=== PATIENT | male | born 1930 | race Caucasian/White ===

== ENCOUNTER 2017-06-25 10:56 | Day surgery (SDC) | payer MEDICARE, BC ==
[~2017-06-25] VITALS: Ht 167.6 cm; Wt 61.5 kg
[2017-06-25] VITALS (8 sets, daily range): BP systolic 125–169; BP diastolic 67–94; PULSE 55–84; RESP 16–18; TEMP 97.3–98; O2SAT 93–98
[2017-06-25] MEDS ORDERED: CHLORHEXIDINE GLUCONATE 2 % 1 PACK (2 CLOTHS) TOPICAL PRN (11:30)
[2017-06-25] MEDS ORDERED: INSULIN HUMAN REGULAR 1,000 UNITS/10 ML VIAL SQ PRN (11:30)
[2017-06-25] MEDS ORDERED: METOPROLOL TARTRATE 25 MG TAB PO PRN (11:30)
[2017-06-25] MEDS ORDERED: VANCOMYCIN 1000 MG/NS 250 ML IV SCH ×2 (11:30)
[2017-06-25] MEDS ORDERED: LACTATED RINGER'S 1000 ML IV PRN (11:30)
[2017-06-25] MEDS ORDERED: POVIDONE IODINE 5% (ANTISEPSIS KIT) 4 APPLICATIONS EACH NARE SCH (11:30)
[2017-06-25] MEDS ORDERED: SODIUM CHLORID 0.9% 500 ML IV PRN (11:30)
[2017-06-25] MEDS ORDERED: POVIDONE IODINE 5% (ANTISEPSIS KIT) 4 APPLICATIONS EACH NARE PRN (11:30)
[2017-06-25] MEDS ORDERED: CHLORHEXIDINE GLUCONATE 2 % 1 PACK (2 CLOTHS) TOPICAL SCH (11:30)
[2017-06-25] MEDS ORDERED: ceFAZolin 2 GM PREMIX 50 ML IV SCH (11:30)
[2017-06-25] MEDS ORDERED: ALLO100T PO (11:39)
[2017-06-25] MEDS ORDERED: TYLE325T PO (11:39)
[2017-06-25] MEDS ORDERED: FISHCAP4 PO (11:39)
[2017-06-25] MEDS ORDERED: LISI-515 PO (11:39)
[2017-06-25] MEDS ORDERED: PRAV10TA PO (11:39)
[2017-06-25] MEDS ORDERED: GLUC500T4 PO (11:39)
[2017-06-25] MEDS ORDERED: TARTCAP PO (11:39)
[2017-06-25] MEDS ORDERED: MUPIROCIN 2% OINT 1 APPLIC/GM SYR NASAL SCH (12:00)
[2017-06-25] MEDS ORDERED: NS 1000 ML IV SCH (12:00)
[2017-06-25 12:13] LABS: AUTOMATED NEUTROPHIL # 6.9 TH/MM3 (1.8-7.7); BASOPHIL % 0.3 % (0.0-2.0); EOSINOPHIL % 0.4 % (0.0-4.0); HEMATOCRIT 47.4 % (39.0-51.0); HEMO FLAGS DIFF FINAL; LYMPH % 14.2 % (9.0-44.0); LYMPHOCYTE # 1.2 TH/MM3 (1.0-4.8); MEAN CELL VOLUME 92.7 FL (80.0-100.0); MEAN CORPUSCULAR HEMOGLOBIN 31.5 PG (27.0-34.0); NEUT % 80.1 % (16.0-70.0); PLATELET COUNT 127 TH/MM3 (150-450); RED BLOOD COUNT 5.11 MIL/MM3 (4.50-5.90); RED CELL DISTRIBUTION WIDTH 13.9 % (11.6-17.2); WHITE BLOOD COUNT 8.6 TH/MM3 (4.0-11.0)
[2017-06-25 12:22] LABS: APTT (PATIENT) 28.2 SEC (24.3-30.1)
[2017-06-25 12:25] LABS: BICARBONATE 28.2 MEQ/L (21.0-32.0)
[2017-06-25] MEDS ORDERED: LIDOCAINE HCL 2% 50 ML VIAL ONE ×2 (12:32→12:49)
[2017-06-25] MEDS ORDERED: VANCOMYCIN HCL 1000 MG VIAL ONE (12:49)
[2017-06-25] MEDS ORDERED: ceFAZolin INJ 1,000 MG VIAL ONE (12:49)
[2017-06-25] MEDS ORDERED: VANCOMYCIN 500 MG VIAL ONE (12:49)
[2017-06-25] MEDS ORDERED: MAGNESIUM HYDROXIDE SUSP 30 ML CUP PO PRN (14:45)
[2017-06-25] MEDS ORDERED: ONDANSETRON HCL 4 MG/2 ML VIAL IV PUSH PRN (14:45)
[2017-06-25] MEDS ORDERED: ACETAMINOPHEN/CODEINE 300 MG/30 MG TAB PO PRN (14:45)
[2017-06-25] MEDS ORDERED: ZOLPIDEM TARTRATE 5 MG TAB PO PRN (14:45)
--- NOTE | 2017-06-25 14:51 | CATHPROC ---
[employer] HIS Report Study Information Admission Scheduled Start Study Start Jun 25 2017 10:56AM 06/25/2017 Jun 25 2017 12:38PM [place] [facility] Cardiac Pacer/ICD Facility Department [facility] - Associate Agent Insurance Sales Physician and Clinical Staff Initial Luci Pearce Customer Supply Chain Analyst Shravan Zhu,RT(R) Other Anesthesia, VACUUM FORM OPERATOR Recorder Brain Bliss,RN Scrub Rajani Valentin,JANN Procedures Performed Procedure Lead Insertion Equipment Time Movie Writer Description Size Mfg Part Number Used/Scraped [id number] 13:45 MEDLINE INDUSTRIES SUTURE, STRIP PLUS 1/2" * Used *[id number] 13:45 MEDLINE PACER ADHESIVE, MASTISOL 2/3CC 2/3CC 0523-48 Used 13:45 MEDLINE PACER HARDING, LIMB * 2530 *[id number] Used [id number] 13:45 MEDLINE PACER PACK, PACER CUSTOM * Used *[id number] 13:45 MEDLINE PACER PEN, SKIN DUAL W/ RULER * Used *[id number] 13:51 [employer]. PACER SAFE SHEATH, FR7, 13CM FR 7 CLS-1007 Used 13:51 [employer]. PACER SAFE SHEATH, LONG, FR7, 25CM FR 7 [id number]-2507 Used PROBE COVER, STERILE [id number] 13:45 [employer] * Used ULTRASOUND W/ GEL *[id number] PROBE COVER, STERILE [id number] 13:45 [employer] * Used ULTRASOUND W/ GEL *[id number] PROBE COVER, STERILE [id number] 13:45 [employer] * Used ULTRASOUND W/ GEL *[id number] 13:03 Needle Sponge Count 2 22 Used 13:03 Needle Sponge Count 30 1 Used 13:03 Needle Sponge Count 5 5 Used [id number] *12036 8066-54 *[id number] SUTURE, 0 SILK [CT1] (CO21D), 8pk SUTURE, 3-0 MONOCRYL [SH] (Y316H) SUTURE, 3-0 MONOCRYL [SH] (Y316H) SUTURE, 4-0 MONOCRYL [PS2] (Y496G) SUTURE, 4-0 MONOCRYL [PS2] (Y496G) [id number] 13:45 [employer] BLANKET,WARM AIR CCL * Used *[id number] LEAD, TENDRIL STS 2088TC 14:01 [facility] [facility] 46CM 2088TC/46CM Used 46CM LEAD, TENDRIL STS 2087TC 13:48 [facility] [employer] 58CM 2088TC/58CM Used 58CM PACEMAKER, LYDIA MONTAGUE 14:16 [facility] [id number] Used MRI [facility] PAD, ELECTROSURGICAL 13:45 * [id number] *[id number] Used SURGICAL GROUNDING ORANGE 5340-5371 13:45 [employer] AMBER. / * Used *55115 Equipment Model, Serial, Lot Number and Expiration Data Description Model Number Serial Number Lot Number Expiration Date LEAD, TENDRIL STS 8TC 46CM 8tc 04-11-2020 LEAD, TENDRIL STS 8TC 58CM 805-11-2020 PACEMAKER, ASSFÁTIMA MONTAGUE MRI [id number] 12-09-2018 Medication Medication Total Dose (Bolus/Oral) Medication Total Dosage/Unit 2% XYLOCAINE 50 mL Medications (Bolus/Oral) Medication Time Given Dosage/Unit Administered By Reason 2% XYLOCAINE 06/25/2017 1:40:33 PM 50 mL Luci Miller 50 mL 2% XYLOCAINE given by Luci Miller in Left shoulder via Subcutaneous. Medication (Drip) Medication Time Given Dosage/Unit Concentration/Unit Diluent (ml) Solution ANCEF 06/25/2017 1:00:00 PM 2 g 2 g ANCEF given by Anesthesia, VACUUM FORM OPERATOR via Peripheral IV. 06/25/2017 12:58:00 VANCOMYCIN DRIP 1 g PM 1 g VANCOMYCIN DRIP given by Anesthesia, VACUUM FORM OPERATOR via Peripheral IV. Initial Case Assessment Cardiovascular HR Rhythm NIBP Chest Pain 67 2hb 195/93 0 Edema Present Skin color Skin None Normal Warm Dry Circulatory - Right Pulses Radial 2 Scale (0,1,2,3,4,d) Circulatory - Left Pulses Radial 2 Scale (0,1,2,3,4,d) Circulatory - Lower Extremities Color Lower Right Color Lower Left Normal Normal Neurological State Oriented to time-place- Alert Moves all extremities person Respiration - General Respiration Rate SpO2 (%) (B/min) 20 98 Chronological Log Time Study Chronological Log 12:39:28 Patient arrived via Bed. 12:39:29 Patient Name, D.O.B, / Armband Verified By R.N. 12:39:30 Consent signed by the physician and the patient and verified by the Associate Agent Insurance Sales staff. 12:39:30 Pre-op and post- op instructions given; patient acknowledges understanding of instructions. 12:39:31 Verbal Stimulation=2 Physical Stimulation=2 Airway=2 Respiration=2 TOTAL=8. (0=absent, 1=li mited, 2=present) 12:39:42 Patient has been NPO for More than 6Hrs. 12:39:43 Skin Breakdown- 12:39:43 Patient Warmer Placed on the Table. 12:39:44 Disposable Defibrillator Pads Placed On Patient. 12:39:45 Tamanna Prominences Protected 12:39:47 A # 20 IV was noted in the Antecubital (right). Grade = 0 12:39:48 A # 20 IV was noted in the Antecubital (left). Grade = 0 12:39:48 History and physical on the chart. Assessment: Initial Case, HR=67 BPM, Rhythm=2hb, RSSR=694/93 mmhg, Chest Pain=0, Edema=None, Color=Normal, Skin = Warm, Dry Right Pulses: Radial=2 Left Pulses: Radial=2 12:55:42 Lower Right Extremities: Color=Normal Lower Left Extremities: Color=Normal Neurological: State=Alert, Ox3, [place] Respiration: Resp=20 B/min, SpO2=98 % 12:57:18 Table restraints applied according to hospital policy 12:57:21 2% CHLORHEXIDINE GLUCONATE WASH AND NASAL SWIPE DONE PRIOR TO PROCEDURE. 12:57:23 Bovie ground pad applied to: right thigh 12:57:53 Left Upper Chest Prepped Times Two. 12:58:00 1 g VANCOMYCIN DRIP given by Anesthesia, VACUUM FORM OPERATOR via Peripheral IV. 13:00:00 2 g ANCEF given by Anesthesia, VACUUM FORM OPERATOR via Peripheral IV. 13:01:54 Left Upper Chest Prepped Times Two. First Sponge And Instrument Count Done by Rajani Valentin RCIS. 13:02:24 Hypo's: 5, Sponges: 30, Bovie/scratch: 2 Sutures: 12, Blades: 2, Instruments: 26, Syveck Patches: ~SYVECK PATCH~ Time Out. Correct patient, procedure, procedure equipment, site and side verified with physicia n present. Time 13:34:02 concurred by MD, individual staff and VACUUM FORM OPERATOR. Time Out #2 - Consents verified, patient in correct position, all results are labled and displa yed, safety precautions 13:34:05 taken, antibiotics administered. Time out concurred by MD, individual staff and VACUUM FORM OPERATOR in procedu re 13:38:39 Case Start 13:40:33 50 mL 2% XYLOCAINE given by Luci Miller in Left shoulder via Subcutaneous. 13:46:34 Vascular access was obtained in the Subclav. Vein (Lft. 13:46:40 Wire inserted 13:48:29 Surgical Incision Made. 13:50:13 A SAFE SHEATH, FR7, 13CM FR 7 was advanced into the Subclav. Vein (Lft using the Modified S eldinger technique. A SAFE SHEATH, LONG, FR7, 25CM FR 7 was advanced into the Subclav. Vein (Lft using the Modified Seldinger 13:50:51 technique. 13:55:28 Pocket flushed with antibiotic solution 13:57:21 A LEAD, TENDRIL STS 2088TC 58CM 58CM was inserted and positioned in the RV. 13:59:31 Lead placement verified under fluoroscopy 13:59:37 The RV lead impedance and threshold being tested. 14:00:45 A LEAD, TENDRIL STS 2088TC 46CM 46CM was inserted and positioned in the RA. 14:02:01 Lead placement verified under fluoroscopy 14:02:04 The Atrial lead impedance and threshold is being tested. 14:04:51 The RV lead was sutured to the fascia. 14:04:53 The Atrial lead was sutured to the fascia. 14:11:21 Pocket flushed with antibiotic solution 14:13:06 Lead placement verified under fluoroscopy 14:15:43 A PACEMAKER, LYDIA MONTAGUE MRI was connected and placed in the pocket. Second Sponge And Instrument Count Done by Rajani Valentin RCIS. 14:19:32 Hypo's: 5, Sponges: 30, Bovie/scratch: 2 Sutures: 12, Blades: 2, Instruments: 26, Syveck Patches: ~SYVECK PATCH~ 14:45:30 The pocket was closed. Final Sponge And Instrument Count Done by Rajani Valentin RCIS. 14:46:36 Hypo's: 5, Sponges: 30, Bovie/scratch: 2 Sutures: 12, Blades: 2, Instruments: ~INSTRU~, Syveck Patches: ~SYVECK PATCH~ 14:46:50 Implant Procedure was performed. 14:47:00 A PPM Implant . (Dual) 14:47:12 Case End 14:50:08 Steri-strips and a sterile dressing applied to site. 14:50:11 A sling was placed on the affected arm. 15:10:00 Patient moved to stretcher End Study - Contrast Media Used In Study Contrast Total Opened (mL) Total Used (mL) Total Wasted (mL) Unspecified 0 0 0 End Study - Radiation Exposure Fluoro Time (minutes) 3.1 End Study - Patient Disposition Complications Transferred To Interventional Outcome No Telemetry Bed successful
--- NOTE | 2017-06-25 16:12 | RADRPT ---
EXAM DATE/TIME: 06/25/2017 15:43 [facility] COMPARISON: No previous studies available for comparison. INDICATIONS : Post pacemaker. MEDICAL HISTORY : None. SURGICAL HISTORY : None. ENCOUNTER: Initial ACUITY: 1 day PAIN SCORE: 0/10 LOCATION: Bilateral chest FINDINGS: A single portable frontal view the chest shows mild cardiomegaly. The aorta is tortuous. Lungs are cl ear without infiltrate or effusion. Old right-sided rib fractures. Left-sided pacing device. A degene rative mildly scoliotic spine. Trachea is deviated somewhat towards the patient's right secondary to the tortuous aorta. Old trauma involving the right clavicle. CONCLUSION: 1. Cardiomegaly. 2. Clear lungs. 3. No pneumothorax. Gerry Sood Jr., MD on June 25, 2017 at 16:04 Board Certified Radiologist. This report was verified electronically.
--- NOTE | 2017-06-25 17:39 | MP ---
cc: ANNMARIE HOLLINGSWORTH M.D., JEFFREY DATE OF SURGERY: 06/25/2017 OPERATION: Dual-chamber pacemaker placement. INDICATIONS: 2:1 heart block (see dictated H&P), high-grade AV block, significant pauses. CONSENT Full informed consent was obtained prior to the procedure. The risks of , bleeding, perforation, aspiration, pneumothorax, foreseen and unforeseen complications were reviewed. The patient fully appeared to understand the risks. DESCRIPTION OF PROCEDURE: The patient and prepped and draped in the usual manner. The left infraclavicular area was carefully infiltrated with lidocaine using two stick technique. Two guidewires were placed in the venous circulation. Using blunt, sharp and cautery dissection, a pacemaker pocket was fashioned in the usual manner over the two guidewires which had been placed with micropuncture technique with ultrasound. Two introducer sheaths were passed into the venous circulation. Through these atrial and ventricular lead was passed into the right ventricular apex and right atrial appendage respectively. The helical screws were advanced into the myocardium. Excellent pacing was noted. Both leads were sewn in the pectoralis fascia. Both leads were connected to their respective chambers with pulse generator and the set screws were tightened but not over-tightened. Both leads were tugged down to make sure they were "fast." The pulse generator was then sewn down to the pectoralis fascia. The pocket was flushed with vancomycin solution. The pocket was closed in two layers. CONCLUSION Successful placement of dual-chamber pacer. PLAN We will plan to discharge the patient in a.m. Will plan to do a chest x-ray to rule out pneumothorax. PARAMETERS: Right atrial P-wave was 2.7 mV of RV. R wave was 8.2 mV. The impedance was 600 ohms in the atrium and 640 in the ventricle. The threshold in the atrium was 0.75 volts at 0.4 milliseconds and in the ventricle was 0.5 volts at 0.4 milliseconds. System used was a [employer] device repair technician with a right atrial lead and right ventricular lead. This is an MRI compatible system. The device used was an MRI [id number], the RA lead was a Tendril 2088 PC46. The ventricular lead was 208 ATC 58 Tendril. Both were MRI compatible as was the device. DOMI Sanders MD,MARISA CASAS/JAMISON /2:47 PM /5:05 PM
[2017-06-25] MEDS: ceFAZolin 2 GM PREMIX 50 ML IV SCH (20:38)
--- NOTE | 2017-06-25 21:17 | EKG ---
Date Performed: 06/25/2017 Time Performed: 11:57:46 PTAGE: 87 years EKG: Sinus rhythm . First degree AV block Left axis deviation Borderline ECG NO PREVIOUS TRACING DOCTOR: Valerie Poole Interpretating Date/Time 06/25/2017 21:16:26
[2017-06-26] VITALS (8 sets, daily range): BP systolic 141–143; BP diastolic 74–80; PULSE 60–74; RESP 16–20; TEMP 96.2–98; O2SAT 93–94
[2017-06-26] MEDS ORDERED: VANCOMYCIN INJ 1,000 MG in SODIUM CHLOR 0.9% 250 ML INJ 250 ML IV ONE (01:00)
[2017-06-26] MEDS: ceFAZolin 2 GM PREMIX 50 ML IV SCH (05:09)
== END 2017-06-26 13:00 | disposition home or self-care (01) ==
LOC: HDOC 10:56 → HDIC 10:57 → HCIS 17:09 → HDOC 06-26 13:00
PROVIDERS: ATTEND Internal Medicine Cardiovascular Disease
DX: I44.1 Atrioventricular block, second degree (principal); R00.1 Bradycardia, unspecified; I10 Essential (primary) hypertension; E78.5 Hyperlipidemia, unspecified; Z82.49 Family history of ischemic heart disease and other diseases of the circulatory system; Z79.82 Long term (current) use of aspirin; Z51.81 Encounter for therapeutic drug level monitoring
CPT/HCPCS: 00530; 33208; 71010; 80048; 85025; 85610; 85730; 93005; C1769; C1785; C1898; J0690; J3370; J7050; C1893

== ENCOUNTER 2017-11-04 10:08 | Day surgery (SDC) | payer BC, MEDICARE ==
[~2017-11-04] VITALS: Ht 167.6 cm; Wt 61.5 kg
[~2017-11-04 10:08] MED LIST: ALLO100T PO; FISHCAP4 PO; GLUC500T4 PO; LISI-515 PO; PRAV10TA PO; TARTCAP PO; TYLE325T PO
[2017-11-04] MEDS ORDERED: NS 1000 ML IV SCH (10:45)
[2017-11-04] MEDS ORDERED: MUPIROCIN 2% OINT 1 APPLIC/GM SYR NASAL SCH (10:45)
[2017-11-04 10:50] VITALS: BP 169/80; PULSE 52; RESP 18; TEMP 97.6; O2SAT 97
[2017-11-04 10:55] LABS: AUTOMATED NEUTROPHIL # 6.4 TH/MM3 (1.8-7.7); BASOPHIL % 0.3 % (0.0-2.0); EOSINOPHIL # 0.1 TH/MM3 (0-0.4); EOSINOPHIL % 0.7 % (0.0-4.0); HEMATOCRIT 45.9 % (39.0-51.0); HEMOGLOBIN 15.7 GM/DL (13.0-17.0); LYMPH % 17.1 % (9.0-44.0); LYMPHOCYTE # 1.4 TH/MM3 (1.0-4.8); MEAN CELL VOLUME 92.3 FL (80.0-100.0); MEAN CORPUSCULAR HEMOGLOBIN 31.6 PG (27.0-34.0); MEAN CORPUSCULAR HGB CONC 34.2 % (32.0-36.0); MEAN PLATELET VOLUME 8.3 FL (7.0-11.0); MONO % 4.5 % (0.0-8.0); MONOCYTE # 0.4 TH/MM3 (0-0.9); NEUT % 77.4 % (16.0-70.0); PLATELET COUNT 131 TH/MM3 (150-450); RED BLOOD COUNT 4.98 MIL/MM3 (4.50-5.90); RED CELL DISTRIBUTION WIDTH 14.4 % (11.6-17.2); WHITE BLOOD COUNT 8.3 TH/MM3 (4.0-11.0)
[2017-11-04] MEDS ORDERED: ASPI1CHW4 CHEW (10:58)
[2017-11-04] MEDS ORDERED: METO50TA PO (10:58)
[2017-11-04] MEDS ORDERED: LACTATED RINGER'S 1000 ML IV PRN (11:00)
[2017-11-04] MEDS ORDERED: VANCOMYCIN 1000 MG/NS 250 ML IV SCH ×2 (11:00)
[2017-11-04] MEDS ORDERED: POVIDONE IODINE 5% (ANTISEPSIS KIT) 4 APPLICATIONS EACH NARE SCH (11:00)
[2017-11-04] MEDS ORDERED: CHLORHEXIDINE GLUCONATE 2 % 1 PACK (2 CLOTHS) TOPICAL SCH (11:00)
[2017-11-04] MEDS ORDERED: METOPROLOL TARTRATE 25 MG TAB PO PRN (11:00)
[2017-11-04] MEDS ORDERED: POVIDONE IODINE 5% (ANTISEPSIS KIT) 4 APPLICATIONS EACH NARE PRN (11:00)
[2017-11-04] MEDS ORDERED: CHLORHEXIDINE GLUCONATE 2 % 1 PACK (2 CLOTHS) TOPICAL PRN (11:00)
[2017-11-04] MEDS ORDERED: INSULIN HUMAN REGULAR 1,000 UNITS/10 ML VIAL SQ PRN (11:00)
[2017-11-04] MEDS ORDERED: SODIUM CHLORID 0.9% 500 ML IV PRN (11:00)
[2017-11-04 11:05] LABS: PROTHROMBIN TIME - PATIENT 10.6 SEC (9.8-11.6)
[2017-11-04 11:13] LABS: BICARBONATE 26.7 MEQ/L (21.0-32.0); CALCIUM 9.1 MG/DL (8.5-10.1); CREATININE 1.14 MG/DL (0.60-1.30)
[2017-11-04] MEDS ORDERED: LIDOCAINE HCL 1% PF 5 ML SYRINGE OTHER ONE (12:00)
[2017-11-04] MEDS ORDERED: PROPOFOL 200 MG/20 ML AMP IV ONE (12:00)
[2017-11-04] MEDS ORDERED: ePHEDrine/NS 25 MG/5 ML SYRINGE IV ONE (12:00)
[2017-11-04] MEDS ORDERED: VANCOMYCIN 500 MG VIAL ONE (13:33)
[2017-11-04] MEDS ORDERED: ceFAZolin INJ 1,000 MG VIAL ONE (13:34)
[2017-11-04] MEDS ORDERED: LIDOCAINE HCL 2% 50 ML VIAL ONE (13:34)
[2017-11-04] MEDS ORDERED: MIDAZOLAM HCL 2 MG/2 ML VIAL ONE (13:41)
--- NOTE | 2017-11-04 15:18 | CATHPROC ---
[employer] HIS Report Study Information Study Number Admission Scheduled Start Study Start [id number] Nov 04 2017 10:08AM 11/04/2017 Nov 04 2017 1:01PM [place] [facility] Cardiac Pacer/ICD Admit Source Facility Department Other [facility] - Paper Sample Clerk Physician and Clinical Staff Initial Luci Pearce Vp Integrity Ravi Engel,RN Vp Integrity Keila Balderas,RT(R) Other Anesthesia, WIREWORKER SUPERVISOR Recorder Nakul BRIDGES, Tanya Gutierrez,RT(R) TECH2 Procedures Performed Procedure Lead Insertion Equipment Time Religious Healer Description Size Mfg Part Number Used/Scraped INTRODUCER SET, [id number] 14:10 [employer] FR 5 Used MICROPUNCTURE *[id number] DERMABOND, ADHESIVE SKIN [id number] 15:01 CORDIS/PACER * Used GLUE MINI *[id number] TP-1103 14:09 [employer] INDUSTRIES SUTURE, STRIP PLUS 1/2" * Used *[id number] 14:09 MEDLINE PACER ADHESIVE, MASTISOL 2/3CC 2/3CC 0523-48 Used 14:09 MEDLINE PACER HARDING, LIMB * 2530 *[id number] Used [id number] 14:09 [employer] PACER PACK, PACER CUSTOM * Used *[id number] 14:09 [employer]ICE PACER PEN, SKIN DUAL W/ RULER * Used *[id number] 14:12 [employer] PACER SAFE SHEATH, FR7, 13CM FR 7 CLS-1007 Used PROBE COVER, STERILE [id number] 14:09 [employer] * Used ULTRASOUND W/ GEL *[id number] *05018 8066-54 *[id number] SUTURE, 0 SILK [CT1] (CO21D), 8pk SUTURE, 3-0 MONOCRYL [SH] (Y316H) SUTURE, 3-0 MONOCRYL [SH] (Y316H) SUTURE, 4-0 MONOCRYL [PS2] (Y496G) SUTURE, 4-0 MONOCRYL [PS2] (Y496G) [id number] 14:09 [facility] BLANKET,WARM AIR CCL * Used *[id number] DEFIBRILLATOR, FORTIFY 14:20 [facility] VVEVVVIRV [id number] Used FAUSTINO PORTER DR ACTIVE FIXATION 14:11 [facility] 58CM 7122Q-58 Used 7122Q/58 [facility] PAD, ELECTROSURGICAL 14:09 * E7507 *[id number] Used SURGICAL GROUNDING ORANGE 9764-8397 14:09 [employer] AMBER. / * Used *08847 Equipment Model, Serial, Lot Number and Expiration Data Description Model Number Serial Number Lot Number Expiration Date DEFIBRILLATOR, SYLVESTER RILEY [id number] 11-09-2018 FAUSTINO RUSH ACTIVE FIXATION 7121Q-58 [id number] 10-09-201822Q/58 Labs Hgb (g/dl) Hct (%) WBC (l/cumm) Platelets (thousands) 11.60-17.00 35.00-51.00 4.00-11.00 150.00-450.00 15.7 45.9 8.3 131 Glucose (mg/dl) BUN (mg/dl) Creatinine (mg/dl) BUN:Creatinine (1:x) 74.00-106.00 7.00-18.00 0.50-1.30 10.00-20.00 112 24 1.1 21.8 Na (meq/l) K (meq/l) 136.00-145.00 3.50-5.10 141 4.1 INR (PTT:PT) 0.90-1.10 1 CPK-MB (ng/ML) 0.50-3.60 Not Drawn Medication Medication Total Dose (Bolus/Oral) Medication Total Dosage/Unit 2% XYLOCAINE 20 mL Medications (Bolus/Oral) Medication Time Given Dosage/Unit Administered By Reason 2% XYLOCAINE 11/04/2017 1:56:25 PM 20 mL Luci Miller 20 mL 2% XYLOCAINE given by Luci Miller in Left shoulder via Subcutaneous. Ordered by Yuliet Miller. Medication (Drip) Medication Time Given Dosage/Unit Concentration/Unit Diluent (ml) Solution ANCEF 11/04/2017 1:51:46 PM 1 g 1 g ANCEF given by LUIS Davey via Peripheral IV. Ordered by Luci Miller. VANCOMYCIN DRIP 11/04/2017 1:25:30 PM 1 g 1 g VANCOMYCIN DRIP given by Ravi Engel, CYRUS via Peripheral IV. Ordered by Luci Miller. Initial Case Assessment Cardiovascular HR NIBP Chest Pain 56 181/89 0 Edema Present Skin color Skin None Normal Warm Dry Neurological State Oriented to time-place- Alert Moves all extremities person Respiration - General Respiration Rate SpO2 (%) (B/min) 16 99 Chronological Log Time Study Chronological Log 13:10:16 Patient arrived via Bed. 13:11:52 Patient has been NPO for More than 6Hrs. 13:13:59 Patient Warmer Placed on the Table. 13:15:35 Tamanna Prominences Protected 13:16:50 Skin Breakdown- none reported by patient 13:20:56 Disposable Defibrillator Pads Placed On Patient. 13:25:30 1 g VANCOMYCIN DRIP given by Ravi Engel, CYRUS via Peripheral IV. Ordered by Gisela Miller. 13:30:17 Bovie ground pad applied to: 13:35:57 Anesthesia at bedside. Assumes care of patient. 13:40:07 Left Upper Chest Prepped Times Two. 13:41:43 A # 20 IV was noted in the Antecubital (left). Grade = 0 13:41:59 A # 20 IV was noted in the Antecubital (right). Grade = 0 Assessment: Initial Case, HR=56 BPM, ESFD=968/89 mmhg, Chest Pain=0, Edema=None, Color=Normal, Skin = Warm, Dry 13:42:15 Neurological: State=Alert, Ox3, [place] Respiration: Resp=16 B/min, SpO2=99 % 13:44:49 2% CHLORHEXIDINE GLUCONATE WASH AND NASAL SWIPE DONE PRIOR TO PROCEDURE. First Sponge And Instrument Count Done by Murali Mota RN. 13:45:11 Hypo's:4 hypo's, Sponges:30 sponges, Bovie/scratch:1 bovie/0 scratch Sutures:11, Blades:2, Instruments:26 13:48:43 MD arrived. 13:51:46 1 g ANCEF given by Anesthesia, WIREWORKER SUPERVISOR via Peripheral IV. Ordered by Luci Miller. Time Out. Correct patient, procedure, procedure equipment, site and side verified with physicia n present. Time 13:55:36 concurred by MD, individual staff and WIREWORKER SUPERVISOR. Time Out #2 - Consents verified, patient in correct position, all results are labled and displa yed, safety precautions 13:55:39 taken, antibiotics administered. Time out concurred by MD, individual staff and WIREWORKER SUPERVISOR in procedu re 13:56:25 20 mL 2% XYLOCAINE given by Luci Miller in Left shoulder via Subcutaneous. Ordered by Luci Miller. 13:56:41 Case Start 13:57:25 Surgical Incision Made. 14:01:27 A device was explanted. 14:06:00 A revised pocket was created at the L Upper Chest. 14:09:11 Vascular access was obtained in the Subclav. Vein (Lft. 14:12:06 A LEAD, DURATA ACTIVE FIXATION 7122Q/58 58CM was inserted and positioned in the RV. 14:13:11 Lead placement verified under fluoroscopy 14:14:36 The RV lead impedance and threshold being tested. 14:17:36 7 FR SAFE SHEATH REMOVED 14:18:02 The RV lead was sutured to the fascia. 14:23:46 Pocket flushed with antibiotic solution 14:24:15 RV PACEMAKER LEAD CAPPED 14:25:[address] VVEVVVIRV was connected and placed in the pocket. Second Sponge And Instrument Count Done by Luci Miller. 14:27:26 Hypo's:4 hypo's, Sponges:30 sponges, Bovie/scratch:1 bovie/0 scratch Sutures: 11, Blades: 2 14:28:25 Implant Procedure was performed. 14:28:32 A ICD Implant . (Dual) 14:33:48 The pocket is being closed. 14:57:26 Implantable Device card placed in patient's chart. 15:01:08 Case End 15:01:13 Sterile dressing applied to site 15:01:17 No case complications noted. 15:01:44 DOCU called. Spoke to CLEMENTINE The Final Sponge And Instrument Count Done by Luci Miller. 15:04:12 Hypo's: 4 hypo's, Sponges:30 sponges, Bovie/scratch:1 bovie/ 0scratch Sutures: 11, Blades: 2, Instruments: 26 15:16:24 Bedside Report will be given. 15:18:05 Patient moved to stretcher End Study - Contrast Media Used In Study Contrast Total Opened (mL) Total Used (mL) Total Wasted (mL) Unspecified 0 0 0 End Study - Maximum Contrast Load Max Contrast Load (mL) 275.4 End Study - Radiation Exposure Fluoro Time (minutes) 4.7 End Study - Patient Disposition Complications Transferred To No Telemetry Bed
[2017-11-04] MEDS ORDERED: ONDANSETRON HCL 4 MG/2 ML VIAL IV PUSH PRN (15:45)
[2017-11-04] MEDS ORDERED: ACETAMINOPHEN/CODEINE 300 MG/30 MG TAB PO PRN (15:45)
[2017-11-04] MEDS ORDERED: ZOLPIDEM TARTRATE 5 MG TAB PO PRN (15:45)
[2017-11-04] MEDS ORDERED: MAGNESIUM HYDROXIDE SUSP 30 ML CUP PO PRN (15:45)
--- NOTE | 2017-11-04 15:50 | MP ---
cc: Luci Miller MD, Jeffrey DO DATE OF OPERATION: 11/04/2017 PROCEDURE PERFORMED: Upgrade to ICD from pacemaker. INDICATIONS FOR PROCEDURE: Sustained ventricular tachycardia, one occasion was greater than 3 minutes and the second occasion greater than 4 minutes. Ventricular tachycardia rate was 150 beats per minute. CONSENT: Full informed consent was obtained prior to the procedure. Risks of , bleeding, myocardial infarction, perforation, pneumothorax, foreseen and unforeseen complications were reviewed. The patient fully appeared to understand the risks. PROCEDURAL STATEMENT: The patient was draped and prepped in the usual manner. Left infraclavicular area was carefully infiltrated with lidocaine. Initially an ultrasound was used, but this did not visualize the vein well. Micropuncture technique was used to cannulate the left subclavian vein. An introducer sheath wire was passed into the vein. Prior to this pacemaker pocket was opened using blunt, sharp, and cautery dissection. The pulse generator was removed. A new lead introducer sheath was passed to venous circulation which was 7-Burkinan and through this, a 7-Burkinan single coil [employer] ICD lead was passed into the right ventricular apex. This lead was screwed into the right ventricular apical area. Excellent sensing and parameters were noted. Care was taken to make sure that this lead was far from the other lead and there was no chance of crosstalk. Excellent pacing and sensing parameters were noted. The lead was sewn back in the fascia. The old ventricular lead was capped. The atrial lead was removed from the old pacemaker and placed into the new ICD atrial port. The quadripolar ventricular lead was passed into the new ICD pulse generator pocket. Set screws were tightened but not over tightened. The pulse generator was then sewn down to pectoral fascia and the pocket closed in 3 layers. Medical adhesive was used to seal the wound. 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 Dual chamber ICD and removal of dual-chamber pacemaker, RV lead capped. Luci Miller MD HAJ/TL , 03:12 PM , 03:50 PM EJ
--- NOTE | 2017-11-04 16:20 | RADRPT ---
EXAM DATE/TIME: 11/04/2017 15:46 [facility] COMPARISON: CHEST SINGLE AP, June 25, 2017, 15:43. INDICATIONS : Post defibrillator placement. MEDICAL HISTORY : Hypertension. hyperlipidemia SURGICAL HISTORY : pacemaker 2016, just removed ENCOUNTER: Initial ACUITY: 1 day PAIN SCORE: 0/10 LOCATION: Bilateral chest FINDINGS: A single AP portable view of the chest was obtained and demonstrates interval placement of a new left subclavian transvenous pacer with multiple leads. There is no pneumothorax. There are no confluent i nfiltrates or effusions. There is stable scarring in the right lung apex. The heart size is at the up per limits of normal with no perihilar edema. The bony thorax is intact. There is an old healed right clavicular fracture. CONCLUSION: Interval placement of new left subclavian transvenous pacer with no pneumothorax. Bernard Patle MD on November 04, 2017 at 16:16 Board Certified Radiologist. This report was verified electronically.
[2017-11-04 19:15] VITALS: BP 153/67; PULSE 58; TEMP 97.8; O2SAT 96
[2017-11-04 20:00] VITALS: PULSE 58
[2017-11-04] MEDS ORDERED: CEFAZOLIN INJ 2,000 MG in SODIUM CHLORIDE 0.9% INJ 100 ML IV SCH (20:00)
[2017-11-04 21:00] VITALS: PULSE 64
[2017-11-04] MEDS ORDERED: ceFAZolin 2 GM PREMIX 50 ML IV SCH (21:00)
[2017-11-04] MEDS: CEFAZOLIN INJ 2,000 MG in SODIUM CHLORIDE 0.9% INJ 100 ML IV SCH (21:25)
[2017-11-04 22:00] VITALS: PULSE 56
[2017-11-04] MEDS: LISINOPRIL 10 MG TAB PO SCH (22:00)
[2017-11-04 23:00] VITALS: BP 150/69; PULSE 54; PULSE 57; TEMP 97.8; O2SAT 95
[2017-11-04] MEDS: METOPROLOL TARTRATE 50 MG TAB PO SCH (23:26)
[2017-11-05] VITALS (12 sets, daily range): BP systolic 125–136; BP diastolic 61–75; PULSE 54–58; RESP 18; TEMP 97.5–98; O2SAT 93–95
--- NOTE | 2017-11-05 00:02 | EKG ---
Date Performed: 11/04/2017 Time Performed: 11:05:08 PTAGE: 87 years EKG: Atrial pacing. Left axis deviation IV conduction defect Extensive infarct - age undetermine d Abnormal ECG PREVIOUS TRACING : 06/25/2017 11.57 DOCTOR: Santana Alegre Interpretating Date/Time 11/04/2017 23:58:35
[2017-11-05] MEDS: CEFAZOLIN INJ 2,000 MG in SODIUM CHLORIDE 0.9% INJ 100 ML IV SCH (04:29)
[2017-11-05] MEDS: METOPROLOL TARTRATE 50 MG TAB PO SCH (08:33)
[2017-11-05] MEDS: LISINOPRIL 10 MG TAB PO SCH (08:34)
--- NOTE | 2017-11-05 15:53 | EKG ---
Date Performed: 11/04/2017 Time Performed: 16:50:54 PTAGE: 87 years EKG: Demand atrial pacing with prolonged first degree block Left axis deviation Inferior infarct - age undetermined Possible anterior infarct - age undetermined Lateral ST-T changes may be due to m yocardial ischemia Abnormal ECG PREVIOUS TRACING : 11/04/2017 11.05 Possible ventricular pacing; although spikes cannot be seen Clinical correlation is strongly recommended DOCTOR: Felipe Landry Interpretating Date/Time 11/05/2017 15:50:10
== END 2017-11-05 11:59 | disposition home or self-care (01) ==
LOC: HDIC 10:08 → HDOC 10:08 → HCPC 15:36 → HDIC 15:37 → UNDOADMOB 15:37 → HCPC 19:28 → HDIC 19:30 → HCPC 11-05 07:13 → HCIS 11-05 07:13 → HDOC 11-05 11:59
PROVIDERS: ATTEND Internal Medicine Cardiovascular Disease
DX: Z45.02 Encounter for adjustment and management of automatic implantable cardiac defibrillator (principal); I44.1 Atrioventricular block, second degree; R42 Dizziness and giddiness; I47.2 Ventricular tachycardia; I48.92 Unspecified atrial flutter; I10 Essential (primary) hypertension; E78.5 Hyperlipidemia, unspecified; R79.1 Abnormal coagulation profile
CPT/HCPCS: 00530; 33249; 71045; 80048; 85025; 85610; 85730; 93005; C1721; C1777; J0690; J2250; J3010; J3370; J7050; C1895

== ENCOUNTER 2017-12-19 08:22 | Inpatient (IN) | payer MEDICARE ==
[~2017-12-19] VITALS: Ht 167.6 cm; Wt 66.2 kg
[2017-12-19] VITALS (11 sets, daily range): BP systolic 138–140; BP diastolic 68; PULSE 54–58; RESP 16–18; TEMP 96.8–98.5; O2SAT 96–98
[~2017-12-19 08:22] MED LIST changes: +ASPI1CHW4 CHEW; +METO50TA PO
[2017-12-19] MEDS ORDERED: IOHEXOL 350 MG/ML 50 ML BTL (for Cath Lab) OTHER ONE (08:23)
[2017-12-19 09:14] LABS: AUTOMATED NEUTROPHIL # 4.5 TH/MM3 (1.8-7.7); BASOPHIL % 0.4 % (0.0-2.0); EOSINOPHIL # 0.1 TH/MM3 (0-0.4); EOSINOPHIL % 1.1 % (0.0-4.0); HEMATOCRIT 44.3 % (39.0-51.0); HEMOGLOBIN 15.1 GM/DL (13.0-17.0); LYMPH % 17.7 % (9.0-44.0); LYMPHOCYTE # 1.1 TH/MM3 (1.0-4.8); MEAN CELL VOLUME 90.3 FL (80.0-100.0); MEAN CORPUSCULAR HEMOGLOBIN 30.8 PG (27.0-34.0); MEAN CORPUSCULAR HGB CONC 34.1 % (32.0-36.0); MEAN PLATELET VOLUME 8.4 FL (7.0-11.0); MONO % 5.8 % (0.0-8.0); MONOCYTE # 0.4 TH/MM3 (0-0.9); PLATELET COUNT 129 TH/MM3 (150-450); RED BLOOD COUNT 4.91 MIL/MM3 (4.50-5.90); RED CELL DISTRIBUTION WIDTH 14.2 % (11.6-17.2)
[2017-12-19 09:26] LABS: PROTHROMBIN TIME - PATIENT 10.4 SEC (9.8-11.6)
[2017-12-19 09:33] LABS: BICARBONATE 26.6 MEQ/L (21.0-32.0); CALCIUM 9.5 MG/DL (8.5-10.1); CREATININE 1.2 MG/DL (0.60-1.30)
[2017-12-19] MEDS ORDERED: LISI-519 PO (10:41)
[2017-12-19] MEDS ORDERED: HEPARIN-NS/PF FLUSH BAG 1,000 ML IV FLUSH ONE (10:52)
[2017-12-19] MEDS ORDERED: MIDAZOLAM HCL 2 MG/2 ML VIAL ONE (10:52)
--- NOTE | 2017-12-19 12:04 | CATHPROC ---
[employer] HIS Report Study Information Study Number Admission Scheduled Start Study Start [id number] Dec 19 2017 8:22AM 12/19/2017 Dec 19 2017 9:30AM [place] [facility] Cardiac Catheterization Admit Source Facility Department Other [facility] - Adjunct History Instructor Physician and Clinical Staff Initial MD Miller, Luci Weights And Measures Inspector Nakul RN, Murali Other cathlab, cathlab Recorder Renae Knicaid,CHUCKING AND SAWING MACHINE OPERATOR TECH2 Scrub Andrey, Keila,RT(R) Procedures Performed Procedure Location (Site) Vessel Name Angiogram LV LV Ventricle Coronary Angiograms LCA Left Coronary Coronary Angiograms RCA Right Coronary L Heart Cath Equipment Time Printed Circuit Photographer Description Size Mfg Part Number Used/Scraped TRANSDUCER, TRUWAVE [id number] 10:52 [employer] * Used W/STOCKCOCK *[id number] INTRODUCER SET, 10:52 [employer] FR 5 [id number] *[id number] Used MICROPUNCTURE STIFF 538-476 *[id number] 538-420 *[id number] 538-453S *[id number] 10:52 [employer] INDUSTRIES PACK, CCL CUSTOM * Used *[id number] 10:52 [employer] PACER PEN, SKIN DUAL W/ RULER * Used *[id number] 10:52 [employer] B.V. WIRE, 3MMJ .035 180CM 180CM Used *[id number] PROBE COVER, STERILE [id number] 10:52 [employer] * Used ULTRASOUND W/ GEL *[id number] 10:52 [employer] MANIFOLD, 4 PORT * Used *[id number] 10:52 [employer] OMNIPAQUE, 350 MG, 150ML 150ML [id number] Used 11:40 [employer]COMED OMNIPAQUE, 350 MG, 50ML 50ML [id number] Used [id number] 10:52 [employer] BLANKET,WARM AIR CCL * Used *[id number] 10:52 [employer] MEDICAL SHEATH, FR4 TERUMO (10CM) FR 4 Used *[id number] History: Allergies Allergy Reaction No Known Allergies NKA simvastatin History: Risk Factors Family History of Hypertension Dyslipidemia Previous IA Previous Heart Failure Premature CAD Yes Yes No No No Prior Valve Prior PCI Prior CABG Surgery No No No Cerebrovascular Peripheral Artery Chronic Lung On Dialysis Diabetes Disease Disease Disease No No No No No History: CV Disease Selection Items Known CAD History: Stress Tests Stress or Imaging Studies Performed Yes Standard Exercise Stress Test No Stress Echo No Stress Test SPECT No Stress Test CMR Stress Test CMR Result Stress Test CMR Ischemia Risk/Extent Yes Positive Intermediate Cardiac CTA Coronary Calcium Score No No History: Other Disease Selection Items HTN History: Other Current Smoker No Labs Hgb (g/dl) Hct (%) RBC (MIL/MM3) WBC (l/cumm) Platelets (thousands) 11.60-17.00 35.00-51.00 4.00-5.90 4.00-11.00 150.00-450.00 15.1 44.3 4.9 6 129 Glucose (mg/dl) BUN (mg/dl) Creatinine (mg/dl) BUN:Creatinine (1:x) 74.00-106.00 7.00-18.00 0.50-1.30 10.00-20.00 104 15 1.2 12.5 Na (meq/l) K (meq/l) Cl (meq/l) CO2 (mmol/L) Ca (mg/dl) 136.00-145.00 3.50-5.10 98.00-107.00 21.00-32.00 8.50-10.10 142 4 107 26.6 9.5 PT (sec) PTT (sec) INR (PTT:PT) 9.80-11.60 24.30-30.10 0.90-1.10 10.4 25.9 1 Medication Medication Total Dose (Bolus/Oral) Medication Total Dosage/Unit 1% XYLOCAINE 15 mL FENTANYL 25 mcg VERSED 2 mg Medications (Bolus/Oral) Medication Time Given Dosage/Unit Administered By Reason VERSED 12/19/2017 11:18:57 AM 1 mg Murali Mota RN 1 mg VERSED given in lab by Murali Mota RN in Left Antecubital via Peripheral IV. Ordered by Luci Miller. FENTANYL 12/19/2017 11:19:00 AM 25 mcg Murali Mota RN 25 mcg FENTANYL given in lab by Murali Mota RN in Left Antecubital via Peripheral IV. Ordered by Luci Shaw. 1% XYLOCAINE 12/19/2017 11:25:11 AM 15 mL Luci Miller 15 mL 1% XYLOCAINE given in lab by Luci Miller in Right Groin via Subcutaneous. Ordered by Luci Davis. VERSED 12/19/2017 11:27:14 AM 1 mg Murali Mota RN 1 mg VERSED given in lab by Murali Mota RN in Left Antecubital via Peripheral IV. Ordered by Luci Miller. Medication (Drip) Medication Time Given Dosage/Unit Concentration/Unit Diluent (ml) Solution IV Solutions 12/19/2017 10:47:57 AM 0 mL (IV) 500 NaCl .9 IV Solutions given in lab by Murali Mota RN in Left Antecubital via Peripheral IV. Pump/Drip Flow = 20 ml/hr using NaCl .9. Ordered by Luci Miller. Initial Case Assessment Cardiovascular HR NIBP 64 141/87 Edema Present Skin color Skin None Normal Warm Dry Circulatory - Right Pulses Dorsalis Pedis Femoral 1 3 Scale (0,1,2,3,4,d) Circulatory - Left Pulses Dorsalis Pedis Femoral 1 3 Scale (0,1,2,3,4,d) Neurological State Oriented to time-place- Alert Moves all extremities person Respiration - General Respiration Rate SpO2 (%) (B/min) 12 98 Final Case Assessment Cardiovascular HR NIBP 54 110/56 Edema Present Skin color Skin None Normal Warm Dry Circulatory - Right Pulses Dorsalis Pedis Femoral 1 3 Scale (0,1,2,3,4,d) Circulatory - Left Pulses Dorsalis Pedis Femoral 1 3 Scale (0,1,2,3,4,d) Neurological State Oriented to time-place- Alert Moves all extremities person Respiration - General Respiration Rate SpO2 (%) (B/min) 16 93 Chronological Log Time Study Chronological Log 10:45:42 Patient arrived via Bed. 10:45:43 Patient Name, D.O.B, / Armband Verified By R.N. 10:45:44 Consent signed by the physician and the patient and verified by the Adjunct History Instructor staff. Vitals capture started with the following parameters, Patient=Adult, Interval=5 min, Initial Pr wezjks=670 mmHg, 10:47:48 Deflation Rate=5 mmHg, Cuff placed on Left Arm 10:47:50 Pre-op and post- op instructions given; patient acknowledges understanding of instructions. 10:47:51 Patient has been NPO for More than 6Hrs. 10:47:52 NO Skin Breakdown- 10:47:53 Patient Warmer Placed on the Table. 10:47:54 Tamanna Prominences Protected 10:47:56 A # 20 IV was noted in the Antecubital (left). Grade = 0 IV Solutions given in lab by Murali Mota RN in Left Antecubital via Peripheral IV. Pump/Drip F low = 20 ml/hr using NaCl 10:47:57 .9. Ordered by Luci Miller. 10:47:58 History and physical on the chart or being dictated. 10:50:08 HR=64 bpm, KRDU=010/87 mmhg, SpO2=98.0 %, Resp=12 B/min, Pain=0, Rafy=10, Plummer=2 Assessment: Initial Case, HR=64 BPM, VHET=710/87 mmhg, Edema=None, Color=Normal, Skin = Warm, D ry Right Pulses: Logan Ped=1, Femoral=3 10:51:37 Left Pulses: Logan Ped=1, Femoral=3 Neurological: State=Alert, Ox3, NEWBERRY Respiration: Resp=12 B/min, SpO2=98 % 10:52:29 Reference ECG taken 10:53:27 HR=55 bpm, CLHQ=033/72 mmhg, SpO2=97.0 %, Resp=12 B/min, Pain=0, Rafy=10, Plummer=2 10:58:08 Right groin prepped with 2% chlorhexidine, and draped after a 3 min. waiting time. 10:58:30 HR=55 bpm, QPXS=879/72 mmhg, SpO2=97.0 %, Resp=11 B/min, Pain=0, Rafy=10, Plummer=2 11:01:11 Pressure channel 1 zeroed. 11:03:33 HR=55 bpm, JADB=102/70 mmhg, SpO2=95.0 %, Resp=20 B/min, Pain=0, Rafy=10, Plummer=2 11:08:30 HR=55 bpm, DKOY=191/74 mmhg, SpO2=94.0 %, Resp=11 B/min, Pain=0, Rafy=10, Plummer=2 11:13:29 HR=54 bpm, QVIA=866/70 mmhg, SpO2=94.0 %, Resp=16 B/min, Pain=0, Rafy=10, Plummer=2 11:18:28 HR=54 bpm, LRTJ=468/73 mmhg, SpO2=97.0 %, Resp=20 B/min, Pain=0, Rafy=10, Plummer=2 11:18:57 1 mg VERSED given in lab by Murali Mota RN in Left Antecubital via Peripheral IV. Ordered by Luci Miller. 11:19:00 25 mcg FENTANYL given in lab by Murali Mota RN in Left Antecubital via Peripheral IV. Orde red by Luci Miller. 11:23:33 HR=54 bpm, QYYO=536/60 mmhg, SpO2=93.0 %, Resp=16 B/min, Pain=0, Rafy=10, Plummer=2 Time Out. Correct patient, correct procedure, correct physician, power injector loaded with con trast with surgical team 11:24:02 present. Time Out Concurred by MD and individual staff in procedure. 11:24:09 Case Start 15 mL 1% XYLOCAINE given in lab by Luci Miller in Right Groin via Subcutaneous. Ordered by Paul 11:25:11 Luci. 11:26:29 Access site was Right Femoral Artery. A INTRODUCER SET, MICROPUNCTURE STIFF FR 5 was advanced into the Fem Art (right) using the Collins fied Seldinger 11:26:38 technique. A SHEATH, FR4 TERUMO (10CM) FR 4 was exchanged in the Fem Art (right). This was necessary in or milagros to achieve 11:26:44 vascular hemostasis. 11:27:14 1 mg VERSED given in lab by Murali Mota RN in Left Antecubital via Peripheral IV. Ordered by Luci Miller. A JL 4.0 INFINITI CATHETER FR 4 was advanced over a wire. OMNIPAQUE, 350 MG, 150ML 150ML was us ed for 11:28:03 injections. 11:29:05 HR=54 bpm, FLPW=490/61 mmhg, SpO2=97.0 %, Resp=16 B/min, Pain=0, Rafy=10, Plummer=2 Recorded Pressure: Ao, HR=55, Condition=Condition 1 11:29:33 (Aorta) Ao 114/46/71 11:29:55 The LCA was injected and visualized at various angles. OMNIPAQUE, 350 MG, 150ML 150ML used . 11:33:29 HR=56 bpm, NLOE=909/55 mmhg, SpO2=98.0 %, Resp=12 B/min, Pain=0, Rafy=10, Plummer=2 11:34:24 Catheter was removed A 3DRC INFINITI CATHETER FR 4 was advanced over a wire. OMNIPAQUE, 350 MG, 150ML 150ML was used for 11:34:26 injections. 11:35:30 The RCA was injected and visualized at various angles. OMNIPAQUE, 350 MG, 150ML 150ML used . 11:37:05 Catheter was removed A PIGTAIL ANG. INFINITI CATHETER FR 4 was advanced over a wire. OMNIPAQUE, 350 MG, 150ML 150ML was used 11:37:08 for injections. Recorded Pressure: LV, HR=55, Condition=Condition 1 11:38:30 (Left Ventricle) LV 109/1/6 11:39:03 HR=56 bpm, XNUY=134/57 mmhg, SpO2=97.0 %, Resp=17 B/min, Pain=0, Rafy=10, Plummer=2 11:40:07 The LV was injected at 8 cc/sec for a total of 32. OMNIPAQUE, 350 MG, 50ML 50ML used. Recorded Pressure: LV, Ao, HR=55, Condition=Condition 1 11:40:41 (Left Ventricle) LV 95/2/6, (Aorta) Ao 92/36/57 11:41:29 Catheter was removed 11:41:33 Case End 11:43:25 HR=54 bpm, ADKN=143/56 mmhg, SpO2=93.0 %, Resp=16 B/min, Pain=0, Rafy=10, Plummer=2 11:46:43 Vitals capture stopped. Assessment: Final Case, HR=54 BPM, IWOT=240/56 mmhg, Edema=None, Color=Normal, Skin = Warm, Dr y Right Pulses: Logan Ped=1, Femoral=3 11:46:48 Left Pulses: Logan Ped=1, Femoral=3 Neurological: State=Alert, Ox3, NEWBERRY Respiration: Resp=16 B/min, SpO2=93 % 11:47:27 Catheter(s) removed without difficulty 11:47:31 Sterile dressing applied to site 11:47:31 No case complications noted. 11:47:34 Cine recording checked. 11:47:37 Bedside Report will be given. 11:47:40 A Left Heart Cath was performed. 11:50:47 Patient moved to stretcher End Study - Contrast Media Used In Study Contrast Total Opened (mL) Total Used (mL) Total Wasted (mL) Omnipaque 70 70 0 End Study - Maximum Contrast Load Max Contrast Load (mL) 254.5 End Study - Radiation Exposure Fluoro Time (minutes) 2.1 End Study - Patient Disposition Complications Transferred To Telemetry Bed
--- NOTE | 2017-12-19 12:35 | MA ---
cc: Luci Miller MD, Jeffrey DO DATE: 12/19/2017 INDICATIONS FOR CATHETERIZATION: 1. Unstable angina. 2. Recurrent ventricular tachycardia. 3. Abnormal nuclear stress test. CONSENT: Fully informed consent was obtained prior to the procedure. The risks of , bleeding, myocardial infarction, perforation, aspiration, foreseen and unforeseen complications were reviewed. The patient appeared to fully understand the risks. PROCEDURAL STATEMENT: The patient was draped and prepped in the usual sterile manner. The right femoral artery was entered using micropuncture technique via the 4-Bengali sheath. Left and right coronary catheters were used to intubate the right and left coronaries, pigtail catheter to intubate the left ventricle. Multiple angiographic views were carried out. At the end of the catheterization procedure, all catheters were removed. The sheath was removed and manual pressure applied until good hemostasis was achieved and the patient was returned to his room in stable condition. FINDINGS: I. HEMODYNAMICS: The aortic pressure 92/36 with a mean of 57. Left ventricular pressure was 95 with a left ventricular end-diastolic pressure of 6. There was evidence of significant gradient on pullback across the LV outflow tract and aortic valve. LEFT VENTRICULOGRAM The overall ejection fraction was estimated at 50%. 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 CORONARIES: There is diffuse calcification of the vessels. The left main had ostial 50%. The LAD was diffusely diseased throughout its length, as were the diagonal branches. There was a 99% stenosis of the LAD and 99% stenosis of the diagonal branch. There is a large ramus vessel with a 75% stenosis in its mid-section. It was a large bifurcating branch. The OM1 was a small vessel and free of significant disease. There was evidence of collateral filling of the distal right via the left injections. The right coronary artery was diffusely diseased throughout its length. The posterior descending artery appeared to be occluded with a posterolateral branch that was patent. CONCLUSION: Severe three-vessel coronary artery disease with surprisingly well preserved left ventricular ejection fraction. PLAN: This is an 87-year-old gentleman with a complex 3-vessel coronary artery disease and recurrent ventricular tachycardia. Would recommend bypass if this is feasible given the increased risk. MD YESSENIA Sanders/VIKTORIA , 12:00 PM , 12:34 PM [facility]
[2017-12-19] MEDS ORDERED: SODIUM CHLOR 0.9% 1000 ML INJ 1,000 ML IV SCH (15:00)
[2017-12-19] MEDS ORDERED: MISC INFORMATION XX ONE (15:00)
[2017-12-19] MEDS: SOTALOL HCL 80 MG TAB PO SCH ×2 (17:37→20:40)
--- NOTE | 2017-12-19 18:31 | RADRPT ---
EXAM DATE/TIME: 12/19/2017 18:13 [place] COMPARISON: No previous studies available for comparison. INDICATIONS : Evaluate for calcified aorta RADIATION DOSE: 11.32 CTDIvol (mGy) MEDICAL HISTORY : Cardiovascular disease. Hypertension. SURGICAL HISTORY : Pacemaker. ENCOUNTER: Initial ACUITY: 1 day PAIN SCALE: 2/10 LOCATION: Bilateral chest TECHNIQUE: Volumetric scanning of the chest was performed. Using automated exposure control and adjustment of t he mA and/or kV according to patient size, radiation dose was kept as low as reasonably achievable to obtain optimal diagnostic quality images. DICOM format image data is available electronically for r eview and comparison. Follow-up recommendations for detected pulmonary nodules are based at a minimum on nodule size and pa tient risk factors according to Fleischner Society Guidelines. FINDINGS: LUNGS: There is no consolidation or pneumothorax. 11 mm nodule right lower lobe with areas of adjacent bronc hiectasis. 9 mm density right middle lobe with punctate calcification. PLEURAE: There is no pleural thickening or pleural effusion. MEDIASTINUM: Mild intimal calcification of the aortic root and proximal ascending aorta. Extensive abscess chronic calcifications of the aortic arch. Extensive coronary artery calcifications. Left-sided pacemaker se en with 3 leads. There is no mediastinal or hilar lymphadenopathy. AXILLAE: Within normal limits. No lymphadenopathy. MUSCULOSKELETAL: Multiple right-sided rib fractures. Old right clavicle fracture. MISCELLANEOUS: The visualized upper abdominal organs demonstrate small hiatal hernia.. CONCLUSION: 1. Very minimal calcification within the ascending aorta. 2. Extensive coronary artery calcifications. 3. 11 mm nodule right lower lobe with adjacent bronchiectasis. Follow up CT chest in 6 months recomme nded for stability. 4. [place] density right middle lobe measuring 9 mm, likely benign. Crarillo Samayoa MD on December 19, 2017 at 18:26 Board Certified Radiologist. This report was verified electronically.
--- NOTE | 2017-12-19 19:50 | EKG ---
Date Performed: 12/19/2017 Time Performed: 09:13:16 PTAGE: 87 years EKPercent AV sequential pacing, with senced premature Ventricular contractions. RVH with s econdary repolarization abnormality Possible LVH with secondary repolarization abnormality Marked pre cordial ST depression, CONSIDER ACUTE INFARCT Extensive ST-T changes are probably due to ventricular hypertrophy Abnormal ECG PREVIOUS TRACING : 11/04/2017 16.50 DOCTOR: Santana Alegre Interpretating Date/Time 12/19/2017 19:49:27
[2017-12-20] VITALS (24 sets, daily range): BP systolic 108–154; BP diastolic 56–77; PULSE 51–60; RESP 16–18; TEMP 97.4–98; O2SAT 94–97
--- NOTE | 2017-12-20 09:23 | PD.CARD.PN ---
Subjective Subjective Remarks The patient denies CP, SOB, edema, right groin pain (Thelma Lynne) Objective Medications Current Medications Medications (Trade) Dose Ordered Sig/Eun Route Start Time Stop Time Status Last Admin Sodium Chloride 1,000 ml @ 30 mls/hr Q24H IV 12/19/17 09:00 ([place]) 80 mg Q12HR PO 12/19/17 15:00 12/19/17 20:40 Sodium Chloride 1,000 ml @ 0 mls/hr Q0M IV 12/19/17 15:00 Vital Signs / I&O Vital Signs Date Time Temp Pulse Resp B/P (MAP) Pulse Ox O2 Delivery O2 Flow Rate FiO2 12/20/17 08:38 58 12/20/17 08:38 97.4 58 16 127/65 (85) 94 12/20/17 06:16 57 12/20/17 05:19 60 12/20/17 04:58 56 12/20/17 04:57 97.4 56 141/68 (92) 96 12/20/17 03:00 56 12/20/17 02:29 60 12/20/17 01:05 56 12/20/17 00:20 97.8 51 108/56 (73) 97 12/20/17 00:00 56 12/19/17 23:00 56 12/19/17 22:00 58 12/19/17 21:00 56 12/19/17 20:00 56 12/19/17 19:00 54 12/19/17 19:00 96.8 57 140/68 (92) 96 12/19/17 18:00 58 12/19/17 17:00 54 12/19/17 16:00 54 12/19/17 15:30 98.5 54 16 140/68 (92) 97 12/19/17 15:00 54 12/19/17 10:35 97.8 55 18 138/68 (91) 98 I/O 12/19/17 12/19/17 12/19/17 12/20/17 12/20/17 12/20/17 07:00 15:00 23:00 07:00 15:00 23:00 Intake Total 480 ml 240 ml Output Total 350 ml 250 ml Balance 130 ml -10 ml Intake Oral 480 ml 240 ml Output Urine Total 350 ml 250 ml # Voids 1 # Bowel Movements 0 Physical Exam GENERAL: Elderly male, CPCU, no distress SKIN: Warm and dry. HEAD: Normocephalic. EYES: No scleral icterus. No injection or drainage. NECK: Supple, trachea midline. No JVD or lymphadenopathy. CARDIOVASCULAR: Regular rate and rhythm, right groin dressing C/D/I RESPIRATORY: Breath sounds equal bilaterally. No accessory muscle use. GASTROINTESTINAL: Abdomen soft, non-tender, nondistended. MUSCULOSKELETAL: No cyanosis, or edema. BACK: Nontender without obvious deformity. No CVA tenderness. Imaging Last [address] 12/19/17 0000 Signed Impressions: Service Date/Time: December 18:13 - CONCLUSION: 1. Very minimal calcification within the ascending aorta. 2. Extensive coronary artery calcifications. 3. 11 mm nodule right lower lobe with adjacent bronchiectasis. Follow up CT chest in 6 months recommended for stability. 4. [place] density right middle lobe measuring 9 mm, likely benign. Carrillo Samayoa MD (Thelma Lynne) Assessment and Plan Assessment and Plan ASHD s/p cardiac cath 12/19/2017- three vessel ASHD- CABG recommended VT due to above s/p PPM -> AICD upgrade 11/04/2017 HTN HLD Mild MR CT chest - 11 mm RLL, 9 cm RML pulmonary nodules with lymphadenopathy - non- smoker PLAN Pending evaluation with Dr Anderson for CABG today at 11 am Transfer attending to Dr Anderson- Edna accepts Continue Sotalol loading The patient was seen and evaluated by Dr Miller who completed face to face encounter, physical exam and participated in evaluation and management (Thelma Lynne) Assessment and Plan The exam, history, and the medical decision-making described in the above note were completed with the assistance of the mid-level provider. I reviewed and agree with the findings presented. I attest that I had a [id number] encounter with the patient on the same day, and personally performed and documented my assessment and findings in the medical record. needs CABG (Luci Miller MD) Thelma Lynne December 20, 2017 09:23 Luci Miller MD December 20, 2017 13:49
[2017-12-20] MEDS: SOTALOL HCL 80 MG TAB PO SCH ×2 (10:02→21:27)
[2017-12-20] MEDS ORDERED: NALOXONE HCL 0.4 MG/ML AMP IV PUSH PRN (11:30)
[2017-12-20] MEDS ORDERED: BISACODYL 10 MG SUPP RECTAL PRN (11:30)
[2017-12-20] MEDS ORDERED: MAGNESIUM HYDROXIDE SUSP 30 ML CUP PO PRN (11:30)
[2017-12-20] MEDS ORDERED: SENNOSIDES 8.6 MG TAB PO PRN (11:30)
[2017-12-20] MEDS ORDERED: ACETAMINOPHEN 325 MG TAB PO PRN (11:30)
[2017-12-20] MEDS ORDERED: NITROGLYCERIN 0.4 MG SL 25 TABS/BTL SL PRN (11:30)
[2017-12-20] MEDS ORDERED: ONDANSETRON HCL 4 MG/2 ML VIAL IVP PRN (11:30)
[2017-12-20] MEDS ORDERED: SODIUM CHLORIDE 0.9% FLUSH 10 ML FLUSH IV FLUSH PRN ×2 (11:30→11:45)
[2017-12-20] MEDS ORDERED: LACTULOSE SYRUP 20 GM/30 ML CUP PO PRN (11:30)
--- NOTE | 2017-12-20 11:43 | PD.CAR.PN ---
CVT Progress Note Subjective/Hospital Course: pt seen and evaluated , full note dictated sts data discussed with pt RISK SCORES About the STS Risk Calculator Procedure: CAB Only Risk of Mortality: 4.186% Morbidity or Mortality: 20.364% Long Length of Stay: 9.301% Short Length of Stay: 28.381% Permanent Stroke: 1.665% Prolonged Ventilation: 13.451% DSW Infection: 0.351% Renal Failure: 6.17% Reoperation: 8.083% Objective: Vital Signs Date Time Temp Pulse Resp B/P (MAP) Pulse Ox O2 Delivery O2 Flow Rate FiO2 12/20/17 08:38 58 12/20/17 08:38 97.4 58 16 127/65 (85) 94 12/20/17 06:16 57 12/20/17 05:19 60 12/20/17 04:58 56 12/20/17 04:57 97.4 56 141/68 (92) 96 12/20/17 03:00 56 12/20/17 02:29 60 12/20/17 01:05 56 12/20/17 00:20 97.8 51 108/56 (73) 97 12/20/17 00:00 56 12/19/17 23:00 56 12/19/17 22:00 58 12/19/17 21:00 56 12/19/17 20:00 56 12/19/17 19:00 54 12/19/17 19:00 96.8 57 140/68 (92) 96 12/19/17 18:00 58 12/19/17 17:00 54 12/19/17 16:00 54 12/19/17 15:30 98.5 54 16 140/68 (92) 97 12/19/17 15:00 54 Result Diagram: 12/19/17 0855 12/19/17 0855 Bela Isidro December 20, 2017 11:43
[2017-12-20] MEDS ORDERED: CHLORHEXIDINE GLUCONATE 4% SOLN 120 ML BTL TOPICAL SCH (11:45)
[2017-12-20] MEDS ORDERED: DEXTROSE 50% IN WATER 50 ML VIAL(D50) IV PUSH PRN (11:45)
[2017-12-20] MEDS ORDERED: INSULIN REGULAR (IV INFUSION) 100 UNITS in SODIUM CHLORIDE 0.9% INJ 99 ML IV PRN (11:45)
[2017-12-20] MEDS ORDERED: ceFAZolin 2 GM PREMIX 50 ML IV SCH (11:45)
[2017-12-20] MEDS ORDERED: METOPROLOL TARTRATE 25 MG TAB PO SCH (11:45)
--- NOTE | 2017-12-20 12:26 | MB ---
cc: Bela Isidro Sohit K MD DATE: 12/20/2017 HISTORY OF PRESENT ILLNESS: An 87-year-old male patient of Dr. Miller and Dr. Guille Bazan. History of recurrent VT or ventricular tachycardia, followed by successful placement of dual chamber ICD upgrade from dual chamber pacemaker 11/04/2017, also a history of Mobitz type 2 heart block. He underwent a recent nuclear stress test which was abnormal, read as positive for ischemia, moderate risk study, large size moderate to severe inferior basilar perfusion defect which is reversible. Recommendations were for cardiac catheterization. The patient underwent catheterization on 12/19/2017 which showed ejection fraction of 50%, left main disease of 50%, diffuse calcification of the vessels. The LAD was diffusely diseased. There was a 99% stenosis of the LAD and 99% stenosis of the diagonal branch. There was a large ramus vessel with 75% stenosis in the mid section. The right coronary artery was diffusely diseased throughout its length and the PDA appeared to be occluded within the posterolateral branch. We were consulted to evaluate for coronary artery bypass grafting x 3. PAST MEDICAL HISTORY: 1. Ventricular tachycardia with a recent upgrade to a dual chamber ICD. 2. Mobitz type 2 second degree heart block. 3. Hypertension. 4. Hyperlipidemia. 5. Benign prostatic hypertrophy. 6. He has had prior osteomyelitis of the fifth great toe. 7. Diverticulosis. 8. Hemorrhoids. PAST SURGICAL HISTORY: 1. [employer] pacemaker change out 11/04/2017. 2. Herniorrhaphy. 3. Appendectomy. 4. Lumbar fusion. ALLERGIES: SIMVASTATIN. HOME MEDICATIONS: 1. Metoprolol 50 b.i.d. 2. Lisinopril 5 p.o. daily. 3. Pravachol 10 p.o. daily. 4. Allopurinol 100 daily. 5. Fish oil. 6. Tylenol. FAMILY HISTORY: Father at 75 with sudden cardiac . Mother at 84. SOCIAL HISTORY: The patient is and has stepchildren. No tobacco or alcohol. Retired from the [employer] in [place]. REVIEW OF SYSTEMS: GENERAL: No night sweats, fever, heat and cold intolerance. SKIN: No psoriasis, itching or hives. HEENT: No blurred vision or hearing loss. RESPIRATORY: No cough or shortness of breath. CARDIOVASCULAR: As above in the HPI. GASTROINTESTINAL: No diarrhea or vomiting. GENITOURINARY: No burning, frequency or urgency. BUILDING SUPERVISOR: No history of TIA, CVA or seizure disorder. ENDOCRINOLOGY: No history of diabetes and/or hypothyroidism. PHYSICAL EXAMINATION: VITAL SIGNS: Blood pressure 130/60, heart rate of 60, afebrile. O2 saturation 94 on room air. GENERAL: The patient is awake and alert in no acute distress. HEENT: Head is normocephalic, atraumatic. Pupils equal and reactive. Oral mucosa pink and moist. NECK: Supple. No JVD. HEART: Heart sounds S1, S2. Regular rate and rhythm. There is a pacer ICD in situ left upper chest wall. LUNGS: Clear to auscultation. No wheezes, rales or rhonchi. ABDOMEN: Soft, nontender, no masses or organomegaly. EXTREMITIES: No cyanosis, clubbing, or edema. LABORATORY DATA: Shows hemoglobin 15, hematocrit of 44. White cell count of 6, platelet count of 129. Sodium 142, potassium 4.0, BUN of 15, creatinine 1.20. INR 1.0. The patient did have a chest CT which showed some minimal calcification within the ascending aorta, extensive coronary calcification, an 11 mm nodule right lower lobe with adjacent bronchiectasis. Recommendation is CT followup in 6 months. Also, an oblong density right middle lobe measuring 9 mm, likely benign. IMPRESSION: This is an 87-year-old male with unstable angina and recent abnormal stress test with 3-vessel coronary disease. The cardiac films will be evaluated by Dr. Tristan Anderson and evaluated for potential coronary artery bypass grafting. The patient also has a history of ventricular tachycardia and has been upgraded to a dual chamber implantable cardioverter defibrillator 10/07/2017, a [employer] device. Other history includes hyperlipidemia and hypertension, currently controlled. Further plan as and timing for surgery as per Dr. Tristan Anderson. STS data has been documented in the electronic record with risk of mortality of 4.1. RUPALI Sandhu MD JRT/RASHMI , 11:50 AM , 12:25 PM
[2017-12-20] MEDS ORDERED: ONDANSETRON ODT 4 MG TAB PO PRN (12:45)
--- NOTE | 2017-12-20 12:46 | RADRPT ---
EXAM DATE/TIME: 12/20/2017 11:46 [facility] COMPARISON: No previous studies available for comparison. INDICATIONS : Pre-op CABG. MEDICAL HISTORY : Hypertension. SURGICAL HISTORY : Appendectomy.Pacemaker. ENCOUNTER: Initial ACUITY: 1 day PAIN SCORE: 0/10 LOCATION: Bilateral legs. TECHNIQUE: Venous ultrasound of the left and right leg was performed from the inguinal ligament to the proximal calf. Real-time, color Doppler and spectral tracing, compression and augmentation techniques were us ed. FINDINGS: RIGHT LEG: There is normal compressibility of the deep venous system from the inguinal region to the proximal ca lf. No echogenic clot is seen in the lumen of the common femoral, femoral, popliteal, and posterior tibial veins. There is a normal response of the venous system to proximal and distal augmentation an d respiration. LEFT LEG: There is normal compressibility of the deep venous system from the inguinal region to the proximal ca lf. No echogenic clot is seen in the lumen of the common femoral, femoral, popliteal, and posterior tibial veins. There is a normal response of the venous system to proximal and distal augmentation an d respiration. CONCLUSION: No evidence of DVT. Deven Cortez MD on December 20, 2017 at 12:44 Board Certified Radiologist. This report was verified electronically.
--- NOTE | 2017-12-20 12:47 | RADRPT ---
EXAM DATE/TIME: 12/20/2017 11:53 [facility] COMPARISON: No previous studies available for comparison. INDICATIONS : Pre-op CABG. MEDICAL HISTORY : Hypertension. SURGICAL HISTORY : Pacemaker. Appendectomy. ENCOUNTER: Initial ACUITY: 1 day PAIN SCORE: 0/10 LOCATION: Bilateral legs. GREATER SAPHENOUS VEIN THIGH: PROXIMAL: Right 3 mm Left 3 mm MID: Right 2 mm Left 2 mm DISTAL: Right 2 mm Left 1 mm CALF: PROXIMAL: Right 2 mm Left 2 mm MID: Right 2 mm Left Non-visualized DISTAL: Right 2 mm Left Non-visualized FINDINGS: The venous system of the lower extremities are patent by color Doppler imaging. Measurements of the leg veins (in mm) are listed above. CONCLUSION: Venous mapping as above. Dveen Cortez MD on December 20, 2017 at 12:45 Board Certified Radiologist. This report was verified electronically.
--- NOTE | 2017-12-20 12:50 | RADRPT ---
EXAM DATE/TIME: 12/20/2017 12:14 [facility] COMPARISON: No previous studies available for comparison. INDICATIONS : Pre-op CABG. MEDICAL HISTORY : Hypertension. SURGICAL HISTORY : Pacemaker. Appendectomy. ENCOUNTER: Initial ACUITY: 1 day PAIN SCORE: 0/10 LOCATION: Bilateral neck PEAK SYSTOLIC VELOCITIES (cm/sec): ICA/CCA RATIO: Right: 1.1 Left: 1.7 ICA: Right: 84 Left: 145 CCA: Right: 79 Left: 86 ECA: Right: 92 Left: 188 VERTEBRAL: Right: 60 antegrade Left: 39 antegrade Elevated flow velocities and ICA/CCA ratios have been found to correlate with increased degrees of vessel stenosis, calculated as percentage of diameter relative to a normal segment of distal ICA/CCA FINDINGS: RIGHT CAROTID: Mild atherosclerotic plaquing at the right carotid bifurcation. No significant stenosis is visualized . The waveforms are within normal limits. LEFT CAROTID: Moderate atherosclerotic plaquing at the left carotid bifurcation. There is a mild elevation of veloc ity in the left internal carotid artery. VERTEBRAL ARTERIES: Antegrade flow is seen in both vertebral arteries. MISCELLANEOUS: None. CONCLUSION: 1. Mild atherosclerotic plaquing at the right carotid bifurcation. 2. Moderate atherosclerotic plaquing at the left carotid bifurcation with mild elevation of velocity in the left internal carotid artery. This suggests a mild to moderate stenosis. If clinically indicat ed, a CTA of the carotids could be performed for further evaluation. Deven Cortez MD on December 20, 2017 at 12:47 Board Certified Radiologist. This report was verified electronically.
--- NOTE | 2017-12-20 18:05 | RADRPT ---
EXAM DATE/TIME: 12/20/2017 16:36 [facility] COMPARISON: No previous studies available for comparison. INDICATIONS : Evaluate for pneomothorax, pneumonia, or communicable diseases. Pre op CABG. MEDICAL HISTORY : Hypertension. Hyperlipidemia. SURGICAL HISTORY : pacemaker 2016, just removed. ENCOUNTER: Initial ACUITY: 1 day PAIN SCORE: 0/10 LOCATION: chest FINDINGS: PA and lateral views of the chest show the heart to be normal in size. The aorta is mildly tortuous a nd calcified. Lungs are clear without acute infiltrate or effusion. Old right-sided rib fractures. A diffusely degenerative spine. Compression deformity at the thoracolumbar junction felt to represent T 12. Left-sided pacing device. CONCLUSION: 1. No acute cardio pulmonary disease. 2. Age-indeterminate T12 compression fracture. 3. Old right-sided rib fractures. Gerry Sood Jr., MD on December 20, 2017 at 18:02 Board Certified Radiologist. This report was verified electronically.
[2017-12-20] MEDS ORDERED: SODIUM CHLORIDE 0.9% FLUSH 10 ML FLUSH IV FLUSH SCH (21:00)
[2017-12-20] MEDS: METOPROLOL TARTRATE 50 MG TAB PO SCH (21:27)
[2017-12-20] MEDS: SODIUM CHLORIDE 0.9% FLUSH 10 ML FLUSH IV FLUSH SCH (21:27)
[2017-12-20] MEDS: DOCUSATE SODIUM 50 MG/SENNA 8.6 MG TAB PO SCH (21:27)
[2017-12-20 22:19] LABS: BILIRUBIN, URINE NEG (NEG); BLOOD, URINE NEG (NEG); GLUCOSE,URINE NEG (NEG); KETONE, URINE NEG (NEG); NITRITE,URINE NEG (NEG); PH, URINE 6.5 (5.0-8.5); SQUAMOUS EPITHELIAL CELL URINE <1 /hpf (0-5); URINE COLOR LIGHT-YELLOW (YELLW/STRAW); URINE LEUKOCYTE ESTERASE NEG (NEG)
[2017-12-21] VITALS (25 sets, daily range): BP systolic 134–148; BP diastolic 63–79; PULSE 52–68; RESP 16–18; TEMP 97.7–98.7; O2SAT 95–97
[2017-12-21] MEDS: HEPARIN SODIUM - SQ 10,000 UNITS/ML VIAL SQ SCH ×2 (01:26→13:00)
[2017-12-21] MEDS: SODIUM CHLORIDE 0.9% FLUSH 10 ML FLUSH IV FLUSH SCH ×2 (08:49→21:22)
[2017-12-21] MEDS: METOPROLOL TARTRATE 50 MG TAB PO SCH (08:50)
[2017-12-21] MEDS: SOTALOL HCL 80 MG TAB PO SCH (08:50)
[2017-12-21] MEDS: ALLOPURINOL 100 MG TAB PO SCH (08:50)
[2017-12-21] MEDS: PRAVASTATIN SOD 10 MG TAB PO SCH (08:50)
[2017-12-21] MEDS: DOCUSATE SODIUM 50 MG/SENNA 8.6 MG TAB PO SCH ×2 (08:50→21:13)
[2017-12-21] MEDS: NS 1000P @30 MLS/HR (KVO) IV SCH (09:00)
[2017-12-22] VITALS (24 sets, daily range): BP systolic 124–148; BP diastolic 66–72; PULSE 54–62; RESP 14–18; TEMP 97.7–98.4; O2SAT 92–96
[2017-12-22] MEDS: METOPROLOL TARTRATE 50 MG TAB PO SCH ×2 (01:43→09:00)
[2017-12-22] MEDS: SOTALOL HCL 80 MG TAB PO SCH ×2 (01:43→09:00)
[2017-12-22] MEDS: HEPARIN SODIUM - SQ 10,000 UNITS/ML VIAL SQ SCH ×2 (01:43→12:45)
[2017-12-22] MEDS: PRAVASTATIN SOD 10 MG TAB PO SCH (09:41)
[2017-12-22] MEDS: DOCUSATE SODIUM 50 MG/SENNA 8.6 MG TAB PO SCH (09:41)
[2017-12-22] MEDS: SODIUM CHLORIDE 0.9% FLUSH 10 ML FLUSH IV FLUSH SCH (09:41)
[2017-12-22] MEDS: NS 1000P @30 MLS/HR (KVO) IV SCH (09:41)
[2017-12-22] MEDS: ALLOPURINOL 100 MG TAB PO SCH (09:41)
[2017-12-23] VITALS (23 sets, daily range): BP systolic 117–159; BP diastolic 56–73; PULSE 54–67; RESP 12–18; TEMP 97.5–98.1; O2SAT 92–97
[2017-12-23] MEDS: SODIUM CHLORIDE 0.9% FLUSH 10 ML FLUSH IV FLUSH SCH ×3 (00:21→20:49)
[2017-12-23] MEDS: SOTALOL HCL 80 MG TAB PO SCH ×3 (00:21→20:49)
[2017-12-23] MEDS: METOPROLOL TARTRATE 50 MG TAB PO SCH ×3 (00:21→20:49)
[2017-12-23] MEDS: HEPARIN SODIUM - SQ 10,000 UNITS/ML VIAL SQ SCH ×2 (00:22→12:28)
[2017-12-23] MEDS: DOCUSATE SODIUM 50 MG/SENNA 8.6 MG TAB PO SCH ×3 (00:22→20:49)
[2017-12-23 04:33] LABS: INTERNATIONAL NORMALIZED RATIO 1.1 RATIO; PROTHROMBIN TIME - PATIENT 10.9 SEC (9.8-11.6)
[2017-12-23 04:38] LABS: AUTOMATED NEUTROPHIL # 3.9 TH/MM3 (1.8-7.7); BASOPHIL # 0.1 TH/MM3 (0-0.2); BASOPHIL % 2.3 % (0.0-2.0); EOSINOPHIL # 0.1 TH/MM3 (0-0.4); EOSINOPHIL % 1.6 % (0.0-4.0); HEMATOCRIT 43.6 % (39.0-51.0); HEMOGLOBIN 15.5 GM/DL (13.0-17.0); LYMPH % 22.9 % (9.0-44.0); LYMPHOCYTE # 1.4 TH/MM3 (1.0-4.8); MEAN CELL VOLUME 88.9 FL (80.0-100.0); MEAN CORPUSCULAR HEMOGLOBIN 31.7 PG (27.0-34.0); MEAN CORPUSCULAR HGB CONC 35.7 % (32.0-36.0); MEAN PLATELET VOLUME 8.7 FL (7.0-11.0); MONO % 7.6 % (0.0-8.0); MONOCYTE # 0.5 TH/MM3 (0-0.9); NEUT % 65.6 % (16.0-70.0); PLATELET COUNT 123 TH/MM3 (150-450)
[2017-12-23 04:53] LABS: ALBUMIN 3.7 GM/DL (3.4-5.0); ALT (GPT) 24 U/L (12-78); AST (GOT) 17 U/L (15-37); BLOOD UREA NITROGEN 24 MG/DL (7-18); CHLORIDE 105 MEQ/L (98-107); CREATININE 1.05 MG/DL (0.60-1.30); GLOMERULAR FILTRATION RATE 67 ML/MIN (>89); GLUCOSE,RANDOM 83 MG/DL (74-106); SODIUM (NA) 141 MEQ/L (136-145)
[2017-12-23 04:54] LABS: ALKALINE PHOSPHATASE 96 U/L (45-117); TOTAL BILIRUBIN ADULT 0.7 MG/DL (0.2-1.0); TOTAL PROTEIN 6.9 GM/DL (6.4-8.2)
[2017-12-23] MEDS: ALLOPURINOL 100 MG TAB PO SCH (09:20)
[2017-12-23] MEDS: PRAVASTATIN SOD 10 MG TAB PO SCH (09:20)
[2017-12-23] MEDS: NS 1000P @30 MLS/HR (KVO) IV SCH (09:20)
[2017-12-23 16:25] LABS: HEMOGLOBIN A1C 4.8 % (4.3-6.0)
--- NOTE | 2017-12-23 16:58 | PD.CAR.PN ---
CVT Progress Note Subjective/Hospital Course: 87-year-old male patient of Dr. Miller and Dr. Guille Bazan. History of recurrent VT or ventricular tachycardia, followed by successful placement of dual chamber ICD upgrade from dual chamber pacemaker 11/04/2017, also a history of Mobitz type 2 heart block. He underwent a recent nuclear stress test which was abnormal, read as positive for ischemia, moderate risk study, large size moderate to severe inferior basilar perfusion defect which is reversible. Recommendations were for cardiac catheterization. The patient underwent catheterization on 12/19/2017 which showed ejection fraction of 50%, left main disease of 50%, diffuse calcification of the vessels. The LAD was diffusely diseased. There was a 99% stenosis of the LAD and 99% stenosis of the diagonal branch. There was a large ramus vessel with 75% stenosis in the mid section. The right coronary artery was diffusely diseased throughout its length and the PDA appeared to be occluded within the posterolateral branch. We were consulted to evaluate for coronary artery bypass grafting x 3. PAST MEDICAL HISTORY: Ventricular tachycardia with a recent upgrade to a dual chamber ICD, Mobitz type 2 second degree heart block, Hypertension, Hyperlipidemia, Benign prostatic hypertrophy, [employer] pacemaker change out 11/04/2017. 12/23 all labs reviewed and radiology stable for surgery in am pain free over the weekend PFT FEV1 1.4 Objective: GENERAL: SKIN: Warm and dry. HEAD: Normocephalic. EYES: No scleral icterus. No injection or drainage. NECK: Supple, trachea midline. No JVD or lymphadenopathy. CARDIOVASCULAR: Regular rate and rhythm without murmurs, gallops, or rubs. RESPIRATORY: Breath sounds equal bilaterally. No accessory muscle use. GASTROINTESTINAL: Abdomen soft, non-tender, nondistended. MUSCULOSKELETAL: No cyanosis, or edema. BACK: Nontender without obvious deformity. No CVA tenderness. Vital Signs Date Time Temp Pulse Resp B/P (MAP) Pulse Ox O2 Delivery O2 Flow Rate FiO2 12/23/17 14:00 59 12/23/17 13:00 57 12/23/17 12:00 60 12/23/17 11:00 58 12/23/17 11:00 98.0 58 16 154/73 (100) 92 12/23/17 10:00 58 12/23/17 09:00 58 12/23/17 08:00 97.5 54 14 126/72 (90) 97 12/23/17 08:00 57 12/23/17 07:00 54 12/23/17 05:00 67 12/23/17 04:00 98.1 61 18 159/70 (99) 97 12/23/17 04:00 65 12/23/17 03:17 62 12/23/17 02:00 62 12/23/17 01:00 56 12/23/17 00:00 60 12/23/17 00:00 98.0 60 16 117/56 (76) 97 12/22/17 23:00 56 12/22/17 22:00 56 12/22/17 21:00 56 12/22/17 20:00 97.7 62 18 148/67 (94) 94 12/22/17 20:00 56 12/22/17 19:00 62 12/22/17 18:00 56 12/22/17 17:00 56 Result Diagram: 12/23/17 0405 12/23/17 0405 (1) Coronary artery disease Plan: for surgery in am left message with [employer] rep / concerning ICD (2) Hyperlipemia (3) Hypertension (4) Ventricular tachyarrhythmia Bela Isidro December 23, 2017 16:58
[2017-12-24] VITALS (16 sets, daily range): BP systolic 96–162; BP diastolic 30–77; PULSE 53–103; RESP 15–18; TEMP 97.1–98; O2SAT 95–98
[2017-12-24] MEDS: HEPARIN SODIUM - SQ 10,000 UNITS/ML VIAL SQ SCH ×2 (01:44→13:00)
[2017-12-24] MEDS: METOPROLOL TARTRATE 50 MG TAB PO SCH ×2 (05:41→20:16)
[2017-12-24] MEDS ORDERED: VANCOMYCIN HCL 1000 MG VIAL ONE (06:28)
[2017-12-24] MEDS ORDERED: ceFAZolin 2 GM PREMIX 0 ML ONE (06:28)
[2017-12-24] MEDS ORDERED: HEPARIN SODIUM - SQ 10,000 UNITS/ML VIAL ONE (06:28)
[2017-12-24] MEDS ORDERED: SODIUM CHLORIDE 0.9% INJ 50 ML ONE (06:54)
[2017-12-24] MEDS: DOCUSATE SODIUM 50 MG/SENNA 8.6 MG TAB PO SCH ×2 (09:00→20:16)
[2017-12-24] MEDS: SODIUM CHLORIDE 0.9% FLUSH 10 ML FLUSH IV FLUSH SCH ×2 (09:00→20:16)
[2017-12-24] MEDS: ALLOPURINOL 100 MG TAB PO SCH (09:00)
[2017-12-24] MEDS: SOTALOL HCL 80 MG TAB PO SCH ×2 (09:00→20:16)
[2017-12-24] MEDS: NS 1000P @30 MLS/HR (KVO) IV SCH (09:00)
[2017-12-24] MEDS: PRAVASTATIN SOD 10 MG TAB PO SCH (09:00)
[2017-12-24] MEDS: CEFAZOLIN INJ 500 MG in SODIUM CHLORIDE 0.9% IRR BTL 500 ML IRRIGATION SCH (09:21)
[2017-12-24] MEDS: PAPAVERINE INJ 60 MG, NITROGLYCERIN INJ 100 MCG, VERAPAMIL INJ 100 MG in SODIUM CHLORID... IRRIGATION SCH (09:21)
[2017-12-24] MEDS: ceFAZolin 2 GM in NS 100 ML IV SCH (09:22)
[2017-12-24] MEDS ORDERED: MIDAZOLAM HCL 2 MG/2 ML VIAL ONE (09:59)
[2017-12-24] MEDS ORDERED: fentaNYL CITRATE 250 MCG/5 ML AMP ONE (09:59)
[2017-12-24] MEDS ORDERED: AMINOCAPROIC ACID INJ 250 MG/ML 20 ML VIAL IV ONE (12:00)
[2017-12-24] MEDS ORDERED: SUCCINYLCHOLINE CHLORIDE 100 MG/5 ML SYRINGE IV PUSH ONE (12:00)
[2017-12-24] MEDS ORDERED: HEPARIN SODIUM - SQ 10,000 UNITS/ML VIAL OTHER ONE (12:00)
[2017-12-24] MEDS ORDERED: GLYCOPYRROLATE 0.2 MG/ML VIAL IV ONE (12:00)
[2017-12-24] MEDS ORDERED: PHENYLEPH/NS 1000 MCG/10 ML SYR IV ONE (12:00)
[2017-12-24] MEDS ORDERED: NEOSTIGMINE METHYLSULFATE 10 MG/10 ML VIAL IV PUSH ONE (12:00)
[2017-12-24] MEDS ORDERED: MAGNESIUM SULFATE 1 GM/2 ML VIAL IV ONE (12:00)
[2017-12-24] MEDS ORDERED: VECURONIUM BROMIDE 10 MG VIAL IV ONE (12:00)
[2017-12-24] MEDS ORDERED: NORMOSOL R INJ 2,000 ML IV ONE (12:00)
[2017-12-24] MEDS ORDERED: ePHEDrine/NS 25 MG/5 ML SYRINGE IV ONE (12:00)
--- NOTE | 2017-12-24 12:31 | RSPPFT ---
DATE OF PROCEDURE: 12/23/17 COMMENTS: Spirometry with FVC of 1.4, FEV1 of 0.9, FEV1/FVC ratio 67%. Post-bronchodilator study was not performed. IMPRESSION: 1. Severe airways obstruction.
--- NOTE | 2017-12-24 15:21 | PD.CAR.PN ---
CVT Progress Note Subjective/Hospital Course: 87-year-old male patient of Dr. Miller and Dr. Guille Bazan. History of recurrent VT or ventricular tachycardia, followed by successful placement of dual chamber ICD upgrade from dual chamber pacemaker 11/04/2017, also a history of Mobitz type 2 heart block. He underwent a recent nuclear stress test which was abnormal, read as positive for ischemia, moderate risk study, large size moderate to severe inferior basilar perfusion defect which is reversible. Recommendations were for cardiac catheterization. The patient underwent catheterization on 12/19/2017 which showed ejection fraction of 50%, left main disease of 50%, diffuse calcification of the vessels. The LAD was diffusely diseased. There was a 99% stenosis of the LAD and 99% stenosis of the diagonal branch. There was a large ramus vessel with 75% stenosis in the mid section. The right coronary artery was diffusely diseased throughout its length and the PDA appeared to be occluded within the posterolateral branch. We were consulted to evaluate for coronary artery bypass grafting x 3. PAST MEDICAL HISTORY: Ventricular tachycardia with a recent upgrade to a dual chamber ICD, Mobitz type 2 second degree heart block, Hypertension, Hyperlipidemia, Benign prostatic hypertrophy, [employer] pacemaker change out 11/04/2017. 12/23 all labs reviewed and radiology stable for surgery in am pain free over the weekend PFT FEV1 1.4 12/24 OR case case cancelled / pt extubated in OR rescheduled for surgery on Thur clear liquids today Objective: Vital Signs Date Time Temp Pulse Resp B/P (MAP) Pulse Ox O2 Delivery O2 Flow Rate FiO2 12/24/17 13:19 95 Nasal Cannula 2.00 12/24/17 11:09 97.1 59 18 115/65 (82) 96 119/48 (71) 12/24/17 11:05 80 12/24/17 09:35 97.1 103 18 141/61 (87) 97 153/58 (89) 12/24/17 09:35 70 12/24/17 06:12 58 12/24/17 05:47 97.7 56 16 162/77 (105) 95 12/24/17 05:17 61 12/24/17 04:00 56 12/24/17 03:00 96 12/24/17 02:00 56 12/24/17 01:00 58 12/24/17 00:00 56 12/23/17 23:00 60 12/23/17 22:00 56 12/23/17 21:00 66 12/23/17 20:00 58 12/23/17 19:37 97.6 56 18 148/67 (94) 96 12/23/17 19:00 59 12/23/17 17:00 58 12/23/17 16:00 60 Result Diagram: 12/23/17 0405 12/23/17 0405 Cardiovascular: NSR (1) Coronary artery disease Plan: surgery cancelled rescheduled for Thur (2) Hyperlipemia (3) Hypertension (4) Ventricular tachyarrhythmia Bela Isidro December 24, 2017 15:21
[2017-12-24] MEDS: SODIUM CHLOR 0.9% 1000 ML INJ 1,000 ML IV SCH (18:21)
[2017-12-25 04:08] VITALS: BP 123/50; PULSE 55; PULSE 63; RESP 15; TEMP 98.5; O2SAT 95
[2017-12-25 05:16] LABS: HEMATOCRIT 37.2 % (39.0-51.0); HEMOGLOBIN 12.7 GM/DL (13.0-17.0); MEAN CELL VOLUME 89.8 FL (80.0-100.0); MEAN CORPUSCULAR HEMOGLOBIN 30.6 PG (27.0-34.0); MEAN CORPUSCULAR HGB CONC 34.1 % (32.0-36.0); MEAN PLATELET VOLUME 8.8 FL (7.0-11.0); PLATELET COUNT 121 TH/MM3 (150-450); RED BLOOD COUNT 4.15 MIL/MM3 (4.50-5.90); RED CELL DISTRIBUTION WIDTH 14.1 % (11.6-17.2); WHITE BLOOD COUNT 6.7 TH/MM3 (4.0-11.0)
[2017-12-25 05:38] LABS: BICARBONATE 27.8 MEQ/L (21.0-32.0); CALCIUM 7.9 MG/DL (8.5-10.1); CREATININE 0.76 MG/DL (0.60-1.30); MAGNESIUM 2.3 MG/DL (1.5-2.5)
[2017-12-25 07:00] VITALS: BP 126/48; PULSE 61; RESP 16; TEMP 97.8; O2SAT 96
[2017-12-25] MEDS: SODIUM CHLORIDE 0.9% FLUSH 10 ML FLUSH IV FLUSH SCH ×2 (08:38→20:45)
[2017-12-25] MEDS: DOCUSATE SODIUM 50 MG/SENNA 8.6 MG TAB PO SCH ×2 (08:38→20:45)
[2017-12-25] MEDS: ALLOPURINOL 100 MG TAB PO SCH (08:48)
[2017-12-25] MEDS: SOTALOL HCL 80 MG TAB PO SCH ×2 (08:48→20:45)
[2017-12-25] MEDS: METOPROLOL TARTRATE 50 MG TAB PO SCH ×2 (08:48→20:45)
[2017-12-25] MEDS: PRAVASTATIN SOD 10 MG TAB PO SCH (08:48)
--- NOTE | 2017-12-25 10:14 | PD.CAR.PN ---
CVT Progress Note Subjective/Hospital Course: 87-year-old male patient of Dr. Miller and Dr. Guille Bazan. History of recurrent VT or ventricular tachycardia, followed by successful placement of dual chamber ICD upgrade from dual chamber pacemaker 11/04/2017, also a history of Mobitz type 2 heart block. He underwent a recent nuclear stress test which was abnormal, read as positive for ischemia, moderate risk study, large size moderate to severe inferior basilar perfusion defect which is reversible. Recommendations were for cardiac catheterization. The patient underwent catheterization on 12/19/2017 which showed ejection fraction of 50%, left main disease of 50%, diffuse calcification of the vessels. The LAD was diffusely diseased. There was a 99% stenosis of the LAD and 99% stenosis of the diagonal branch. There was a large ramus vessel with 75% stenosis in the mid section. The right coronary artery was diffusely diseased throughout its length and the PDA appeared to be occluded within the posterolateral branch. We were consulted to evaluate for coronary artery bypass grafting x 3. PAST MEDICAL HISTORY: Ventricular tachycardia with a recent upgrade to a dual chamber ICD, Mobitz type 2 second degree heart block, Hypertension, Hyperlipidemia, Benign prostatic hypertrophy, [employer] pacemaker change out 11/04/2017. 12/23 all labs reviewed and radiology stable for surgery in am pain free over the weekend PFT FEV1 1.4 12/24 OR case case cancelled / pt extubated in OR rescheduled for surgery on Thur clear liquids today 12/25 right neck small hematoma ecchymosis scheduled for surgery in am on room air, no chest pain Objective: GENERAL: SKIN: Warm and dry. small right neck hematoma , and ecchymosis HEAD: Normocephalic. EYES: No scleral icterus. No injection or drainage. NECK: Supple, trachea midline. No JVD or lymphadenopathy. CARDIOVASCULAR: Regular rate and rhythm without murmurs, gallops, or rubs. RESPIRATORY: Breath sounds equal bilaterally. No accessory muscle use. GASTROINTESTINAL: Abdomen soft, non-tender, nondistended. MUSCULOSKELETAL: No cyanosis, or edema. BACK: Nontender without obvious deformity. No CVA tenderness. Vital Signs Date Time Temp Pulse Resp B/P (MAP) Pulse Ox O2 Delivery O2 Flow Rate FiO2 12/25/17 07:00 97.8 61 16 96 126/48 (74) 5/16/18 07:00 61 12/25/17 04:08 63 12/25/17 04:08 98.5 55 15 95 123/50 (74) 12/24/17 23:09 98.0 62 15 110/58 (75) 95 120/30 (60) 12/24/17 23:09 60 12/24/17 19:15 97.9 53 16 113/55 (74) 96 134/51 (78) 12/24/17 19:00 58 12/24/17 15:00 97.6 68 18 106/62 (77) 98 96/42 (60) 12/24/17 13:19 95 Nasal Cannula 2.00 12/24/17 11:09 97.1 59 18 115/65 (82) 96 119/48 (71) 12/24/17 11:05 80 Labs: Laboratory Tests Test 12/25/17 04:27 White Blood Count 6.7 TH/MM3 (4.0-11.0) Red Blood Count 4.15 MIL/MM3 (4.50-5.90) Hemoglobin 12.7 GM/DL (13.0-17.0) Hematocrit 37.2 % (39.0-51.0) Mean Corpuscular Volume 89.8 FL (80.0-100.0) Mean Corpuscular Hemoglobin 30.6 PG (27.0-34.0) Mean Corpuscular Hemoglobin Concent 34.1 % (32.0-36.0) Red Cell Distribution Width 14.1 % (11.6-17.2) Platelet Count 121 TH/MM3 (150-450) Mean Platelet Volume 8.8 FL (7.0-11.0) Blood Urea Nitrogen 15 MG/DL (7-18) Creatinine 0.76 MG/DL (0.60-1.30) Random Glucose 79 MG/DL (74-106) Calcium Level 7.9 MG/DL (8.5-10.1) Magnesium Level 2.3 MG/DL (1.5-2.5) Sodium Level 142 MEQ/L (136-145) Potassium Level 4.1 MEQ/L (3.5-5.1) Chloride Level 106 MEQ/L (98-107) Carbon Dioxide Level 27.8 MEQ/L (21.0-32.0) Anion Gap 8 MEQ/L (5-15) Estimat Glomerular Filtration Rate 97 ML/MIN (>89) Result Diagram: 12/25/17 04212/25/17426 (1) Coronary artery disease Plan: surgery cancelled rescheduled for Thur no chest pain last pm (2) Hyperlipemia (3) Hypertension (4) Ventricular tachyarrhythmia Bela Isidro December 25, 2017 10:14
[2017-12-25 11:00] VITALS: BP 140/49; PULSE 61; PULSE 63; RESP 16; TEMP 98; O2SAT 97
[2017-12-25] MEDS: SODIUM CHLOR 0.9% 1000 ML INJ 1,000 ML IV SCH (14:38)
[2017-12-25 15:00] VITALS: BP 131/49; PULSE 54; RESP 16; TEMP 97.9; O2SAT 93
[2017-12-25 19:00] VITALS: BP_SYST 106; BP_SYST 127; BP_DIAS 43; BP_DIAS 60; PULSE 57; RESP 20; TEMP 98.2; O2SAT 94
[2017-12-25 23:00] VITALS: BP 114/45; PULSE 58; RESP 20; TEMP 98.2; O2SAT 94
[2017-12-26] VITALS (9 sets, daily range): BP systolic 97–134; BP diastolic 48–74; PULSE 57–80; RESP 12–20; TEMP 97.5–98.6; O2SAT 94–99
[2017-12-26] MEDS: METOPROLOL TARTRATE 50 MG TAB PO SCH ×2 (05:30→21:23)
[2017-12-26] MEDS ORDERED: VANCOMYCIN HCL 1000 MG VIAL ONE (06:17)
[2017-12-26] MEDS ORDERED: ceFAZolin 2 GM PREMIX 50 ML ONE (06:17)
[2017-12-26] MEDS ORDERED: HEPARIN SODIUM - SQ 10,000 UNITS/ML VIAL ONE (06:17)
[2017-12-26] MEDS ORDERED: MIDAZOLAM HCL 5 MG/ML VIAL (1 ML) ONE (06:58)
[2017-12-26] MEDS ORDERED: fentaNYL CITRATE 250 MCG/5 ML AMP ONE (06:58)
[2017-12-26] MEDS: ceFAZolin 2 GM in NS 100 ML IV SCH (08:20)
[2017-12-26] MEDS: ALLOPURINOL 100 MG TAB PO SCH (09:00)
[2017-12-26] MEDS: DOCUSATE SODIUM 50 MG/SENNA 8.6 MG TAB PO SCH ×2 (09:00→21:23)
[2017-12-26] MEDS: PRAVASTATIN SOD 10 MG TAB PO SCH (09:00)
[2017-12-26] MEDS: CEFAZOLIN INJ 500 MG in SODIUM CHLORIDE 0.9% IRR BTL 500 ML IRRIGATION SCH (09:02)
[2017-12-26] MEDS: PAPAVERINE INJ 60 MG, NITROGLYCERIN INJ 100 MCG, VERAPAMIL INJ 100 MG in SODIUM CHLORID... IRRIGATION SCH (09:03)
[2017-12-26] MEDS: SODIUM CHLOR 0.9% 1000 ML INJ 1,000 ML IV SCH (10:15)
[2017-12-26] MEDS ORDERED: DEXMEDETOMIDINE HCL 200 MCG/2 ML VIAL ONE (11:20)
[2017-12-26] MEDS ORDERED: ceFAZolin INJ 1,000 MG VIAL ONE (11:28)
[2017-12-26] MEDS ORDERED: LIDOCAINE HCL 1% PF 5 ML SYRINGE OTHER ONE (12:00)
[2017-12-26] MEDS ORDERED: CALCIUM CHLORIDE 10% SOLN 1 GRAM/10 ML SYR IV ONE (12:00)
[2017-12-26] MEDS ORDERED: HEPARIN SODIUM - SQ 10,000 UNITS/ML VIAL SQ ONE (12:00)
[2017-12-26] MEDS ORDERED: PROTAMINE SULFATE 250 MG/25 ML VIAL IV ONE (12:00)
[2017-12-26] MEDS ORDERED: PHENYLEPH/NS 1000 MCG/10 ML SYR IV ONE (12:00)
[2017-12-26] MEDS ORDERED: NITROGLYCERIN 50 MG/DEXTROSE 5% SOLN 250 ML BTL IV ONE (12:00)
[2017-12-26] MEDS ORDERED: ePHEDrine/NS 25 MG/5 ML SYRINGE IV ONE (12:00)
[2017-12-26] MEDS ORDERED: PHENYLEPHRINE HCL 10 MG/ML VIAL IV ONE (12:00)
[2017-12-26] MEDS ORDERED: VECURONIUM BROMIDE 10 MG VIAL IV ONE (12:00)
[2017-12-26] MEDS: SOTALOL HCL 80 MG TAB PO SCH ×2 (12:00→21:23)
[2017-12-26] MEDS ORDERED: EPINEPHrine HCL (1:1000) 1 MG/ML VIAL IV ONE (12:00)
[2017-12-26] MEDS ORDERED: MAGNESIUM SULFATE 1 GM/2 ML VIAL IV ONE (12:00)
[2017-12-26] MEDS ORDERED: LACTATED RINGER'S 1000 ML INJ 500 ML IV PRN (12:16)
[2017-12-26] MEDS ORDERED: DOBUTamine PREMIX DRIP 250 ML IV PRN (12:16)
--- NOTE | 2017-12-26 12:27 | PD.OP ---
cc: Luci Miller MD; Tristan Anderson MD Operative Report Date of Surgery: December 26, 2017 Preoperative Diagnosis: Postoperative Diagnosis: Procedure: 1. Urgent Off-pump Coronary Artery Bypass Grafting x 3 with Left Internal Mammary Artery (CHÁVEZ) to Left Anterior Descending (LAD), reverse saphenous vein graft to the diagonal 1 (D1) branch of the Left Anterior Coronary Artery (RCA), reverse saphenous vein graft to the ramus marginalis (RM) 2. Circumferential Myocardial Adhesiolysis 3. Right Leg Endoscopic Vein Valdez 4. Intraoperative Vein Mapping. Surgeon: Tristan Anderson Operations Analyst(s): Rosanna Castro Operation and Findings: PREPROCEDURE DIAGNOSES 1. Severe Multi Vessel Coronary Artery Disease. 2. Vascular Disease POSTPROCEDURE DIAGNOSES 1. Severe Multi Vessel Coronary Artery Disease. 2. Severe Pericarditis 3. Dense Myocardial Adhesions 4. Vascular Disease SURGICAL PROCEDURE 1. Urgent Off-pump Coronary Artery Bypass Grafting x 3 with Left Internal Mammary Artery (CHÁVEZ) to Left Anterior Descending (LAD), reverse saphenous vein graft to the diagonal 1 (D1) branch of the Left Anterior Coronary Artery (RCA), reverse saphenous vein graft to the ramus marginalis (RM) 2. Circumferential Myocardial Adhesiolysis 3. Right Leg Endoscopic Vein Valdez 4. Intraoperative Vein Mapping. SURGEON Tristan Anderson MD POPCORN VENDOR ZOILA Aldridge ANESTHESIA General endotracheal CHEESE GRADER LUIS Daniel MD PREPARATION ChloraPrep. COUNTS Needle, sponge, and instrument counts were correct. DRAINS Two 32-Burmese mediastinal tubes. COMPLICATIONS None. INDICATIONS FOR PROCEDURE The patient is a 87-year-old presenting with chest pain and multi-vessel CAD. The patient is being brought to the operating room for surgical revascularization therapy. PROCEDURE Patient was brought to the operating room and placed supine on the OR table. Following the induction of adequate general endotracheal anesthesia and placement of appropriate monitoring devices, intraoperative vein mapping was performed which revealed small but usable-caliber conduit in bilateral lower extremities. The patient was then prepped and draped in standard sterile fashion. Next, 2500 units of intravenous heparin was given. The right greater saphenous vein was harvested endoscopically. This appeared to be a useable- caliber conduit. Simultaneously, a median sternotomy was performed and the left internal mammary artery dissected free off the posterior sternal table. The patient was systemically heparinized and anticoagulation monitored by serial ACT measurements. The internal mammary artery had good pulsatile flow in it but was a small-caliber conduit. The pericardium was then divided in the midline and it was noted that the heart was circumferentially adhesed to the pericardium. The adhesions were carefully lysed using sharp and blunt dissection and the entire heart freed. The cradle was created and targets analyzed. At this point, all anastomoses were performed in a beating-heart fashion using the Reciclata stabilizing system. The left internal mammary artery was anastomosed to the mid LAD (1.75mm) in an end-to-side fashion using 7-0 Prolene. Segment of saphenous vein graft was then anastomosed to D1 (1.75 mm) in an end-to-side fashion using 7-0 Prolene. The final segment of saphenous vein graft was then anastomosed to ramus (1.5 mm) in an end-to-side fashion using 7-0 Prolene.The proximal anastomoses were then constructed to the ascending aorta in a running manner using 6-0 Prolene. All anastomotic sites were inspected and appeared to be hemostatic and patent. Protamine solution was given. Strict hemostasis was assured. The closure was undertaken. 2 chest tubes were placed. The sternum was approximated using sternal wires. The muscular and fascial layer were then closed in 3 layers. The endoscopic vein harvest site was closed in 2 layers. The patient tolerated the procedure well and was transferred to CVICU in stable condition. Tristan Anderson MD December 26, 2017 12:27
[2017-12-26] MEDS ORDERED: hydrALAZINE HCL 20 MG/ML VIAL IV PUSH PRN (12:30)
[2017-12-26] MEDS ORDERED: DEXTROSE 50% IN WATER 50 ML VIAL(D50) IV PUSH PRN (12:30)
[2017-12-26] MEDS ORDERED: POTASSIUM CHLOR 20 MEQ PREMIX 100 ML IV PRN ×3 (12:30)
[2017-12-26] MEDS ORDERED: SODIUM BICARBONATE 8.4% SOLN 50 MEQ/50 ML VIAL IV PUSH PRN ×2 (12:30)
[2017-12-26] MEDS ORDERED: Post-op Orders (for Pharmacy) OTHER ONE (12:30)
[2017-12-26] MEDS ORDERED: CALCIUM CHLORIDE 10% 1 GRAM/10 ML VIAL IV PUSH PRN (12:30)
[2017-12-26] MEDS ORDERED: NITROGLYCERIN-D5W 50 MG/250 ML 250 ML IV PRN (12:30)
[2017-12-26] MEDS ORDERED: SODIUM CHLORIDE 0.9% FLUSH 10 ML FLUSH IV FLUSH PRN (12:30)
[2017-12-26] MEDS ORDERED: ACETAMINOPHEN 325 MG TAB PO PRN (12:30)
[2017-12-26] MEDS ORDERED: RESP: RACEPINEPHRINE 2.25% 0.5 ML NEB NEB PRN (12:30)
[2017-12-26] MEDS ORDERED: DOPamine 800 MG/500 ML INJ 500 ML IV PRN (12:30)
[2017-12-26] MEDS ORDERED: INSULIN REGULAR (IV INFUSION) 100 UNITS in SODIUM CHLORIDE 0.9% INJ 99 ML IV PRN (12:30)
[2017-12-26] MEDS ORDERED: MAGNESIUM SULFATE INJ 2 GM in SODIUM CHLORIDE 0.9% INJ 100 ML IV PRN ×4 (12:30)
[2017-12-26] MEDS ORDERED: ONDANSETRON HCL 4 MG/2 ML VIAL IV PUSH PRN (12:30)
[2017-12-26] MEDS ORDERED: MORPHINE SULFATE 4 MG/ML INJ IV PUSH PRN (12:30)
[2017-12-26] MEDS ORDERED: MEPERIDINE HCL 25 MG/ML VIAL IV PUSH PRN (12:30)
[2017-12-26] MEDS ORDERED: ACETAMINOPHEN 650 MG SUPP RECTAL PRN (12:30)
[2017-12-26] MEDS ORDERED: DEXMEDETOMIDINE INJ 200 MCG in SODIUM CHLORIDE 0.9% INJ 50 ML IV PRN (12:30)
[2017-12-26] MEDS ORDERED: CALCIUM CHLORIDE INJ 1 GM in SODIUM CHLORIDE 0.9% INJ 100 ML IV PRN (12:30)
[2017-12-26] MEDS ORDERED: RESP: ALBUTEROL 2.5 MG/IPRATROPIUM 0.5 MG NEB (PRN) NEB (12:30)
[2017-12-26] MEDS ORDERED: POTASSIUM CHLORIDE 20 MEQ CONTROLLED RELEASE TAB PO PRN ×2 (12:30)
[2017-12-26] MEDS ORDERED: KETOROLAC TROMETHAMINE 30 MG/ML (IVP) VIAL IV PUSH PRN (12:30)
[2017-12-26] MEDS ORDERED: PHENYLEPHRINE INJ 40 MG in DEXTROSE 5% IN WATE 500 ML INJ 496 ML IV PRN ×2 (12:30)
[2017-12-26] MEDS ORDERED: CLEVIDIPINE INJ 50 ML IV PRN (12:30)
[2017-12-26] MEDS ORDERED: METOPROLOL TARTRATE 5 MG/5 ML VIAL IV PUSH PRN (12:30)
[2017-12-26] MEDS: ACETAMINOPHEN 1000 MG/100 ML 100 ML IV SCH ×2 (13:29→19:27)
[2017-12-26] MEDS: ALBUMIN 5% INJ 250 ML IV PRN ×2 (13:30→14:39)
--- NOTE | 2017-12-26 13:44 | RADRPT ---
EXAM DATE/TIME: 12/26/2017 12:58 [facility] COMPARISON: CHEST SINGLE AP, November 04, 2017, 15:46. INDICATIONS : Post open heart surgery. MEDICAL HISTORY : Hypertension. Hyperlipidemia. SURGICAL HISTORY : pacemaker ENCOUNTER: Subsequent ACUITY: 4 - 6 days PAIN SCORE: 8/10 LOCATION: Bilateral chest FINDINGS: Status post CABG. The endotracheal tube, central line and chest tubes are in place. No pneumothorax. There is mild atelectasis in the left lung base. Right lung is grossly clear. There is a pacemaker ov erlying the left chest. There is an old healed right-sided rib fractures. CONCLUSION: Satisfactory postop view of the chest. Deven Cortez MD on December 26, 2017 at 13:41 Board Certified Radiologist. This report was verified electronically.
[2017-12-26] MEDS: RESP: ALBUTEROL 2.5 MG/IPRATROPIUM 0.5 MG NEB (SCH) NEB ×2 (16:54→20:58)
[2017-12-26] MEDS ORDERED: RASS Change Order XX ONE (18:30)
[2017-12-26] MEDS ORDERED: EPINEPHrine 2 MG/D5W 250 ML IV PRN ×2 (18:30)
[2017-12-26] MEDS: SODIUM CHLORIDE 0.9% FLUSH 10 ML FLUSH IV FLUSH SCH (21:00)
[2017-12-26] MEDS: ceFAZolin 2 GM PREMIX 50 ML IV SCH (21:24)
[2017-12-27] VITALS (19 sets, daily range): BP systolic 101–126; BP diastolic 48–84; PULSE 54–74; RESP 18–20; TEMP 97.5–98.6; O2SAT 91–96
[2017-12-27] MEDS: ACETAMINOPHEN 1000 MG/100 ML 100 ML IV SCH ×2 (01:34→06:05)
[2017-12-27] MEDS: RESP: ALBUTEROL 2.5 MG/IPRATROPIUM 0.5 MG NEB (SCH) NEB ×4 (04:57→23:45)
[2017-12-27] MEDS: ceFAZolin 2 GM PREMIX 50 ML IV SCH ×3 (05:04→21:21)
[2017-12-27 06:02] LABS: HEMATOCRIT 28.8 % (39.0-51.0); MEAN CELL VOLUME 90.9 FL (80.0-100.0); MEAN CORPUSCULAR HEMOGLOBIN 31.6 PG (27.0-34.0); MEAN CORPUSCULAR HGB CONC 34.7 % (32.0-36.0); MEAN PLATELET VOLUME 8.8 FL (7.0-11.0); PLATELET COUNT 91 TH/MM3 (150-450); RED BLOOD COUNT 3.17 MIL/MM3 (4.50-5.90); RED CELL DISTRIBUTION WIDTH 14.1 % (11.6-17.2); WHITE BLOOD COUNT 8.1 TH/MM3 (4.0-11.0)
[2017-12-27] MEDS: PANTOPRAZOLE SOD 40 MG DELAYED RELEASE TAB PO SCH (06:04)
[2017-12-27] MEDS: SODIUM CHLOR 0.9% 1000 ML INJ 1,000 ML IV SCH (06:15)
--- NOTE | 2017-12-27 06:28 | RADRPT ---
EXAM DATE/TIME: 12/27/2017 04:54 [facility] COMPARISON: CHEST SINGLE AP, December 26, 2017, 12:58. INDICATIONS : Status post CABG. MEDICAL HISTORY : Hypertension. Hyperlipidemia. SURGICAL HISTORY : Pacemaker. ENCOUNTER: Subsequent ACUITY: 1 week PAIN SCORE: Non-responsive. LOCATION: chest FINDINGS: Low lung volumes noted. Patchy bibasilar consolidations more pronounced than the prior study. Heart i s at the upper limits of normal. No effusions. Left-sided thoracostomy tube without pneumothorax. Lef t-sided pacing device. Median sternotomy wires. Old right-sided rib fractures. CONCLUSION: Worsening bibasilar consolidations. No pneumothorax. Gerry Sood Jr., MD on December 27, 2017 at 6:26 Board Certified Radiologist. This report was verified electronically.
[2017-12-27 06:29] LABS: BICARBONATE 20.3 MEQ/L (21.0-32.0); CREATININE 0.81 MG/DL (0.60-1.30); MAGNESIUM 1.9 MG/DL (1.5-2.5)
[2017-12-27] MEDS: METOPROLOL TARTRATE 50 MG TAB PO SCH (08:10)
[2017-12-27] MEDS: SOTALOL HCL 80 MG TAB PO SCH ×2 (08:10→21:21)
[2017-12-27] MEDS: DOCUSATE SODIUM 50 MG/SENNA 8.6 MG TAB PO SCH (08:11)
[2017-12-27] MEDS: CLOPIDOGREL 75 MG TAB PO SCH (08:11)
[2017-12-27] MEDS: SODIUM CHLORIDE 0.9% FLUSH 10 ML FLUSH IV FLUSH SCH ×2 (08:12→21:21)
[2017-12-27] MEDS: ASPIRIN 81 MG CHEW TAB PO SCH (08:12)
[2017-12-27] MEDS: PRAVASTATIN SOD 10 MG TAB PO SCH (08:12)
[2017-12-27] MEDS: ALLOPURINOL 100 MG TAB PO SCH (08:12)
[2017-12-27] MEDS ORDERED: BISACODYL 10 MG SUPP RECTAL PRN (08:45)
[2017-12-27] MEDS ORDERED: DEXTROSE 50% IN WATER 50 ML VIAL(D50) IV PUSH PRN (08:45)
[2017-12-27] MEDS ORDERED: GLUCAGON 1 MG/ML VIAL OTHER PRN (08:45)
[2017-12-27] MEDS ORDERED: SOD PHOSPHATE/SOD BIPHOSPHATE (ADULT) ENEMA 133ML RECTAL PRN (08:45)
[2017-12-27] MEDS: INSULIN ASPART SUPPLEMENTAL SCALE SQ SCH ×3 (09:44→17:32)
[2017-12-27] MEDS: MAGNESIUM HYDROXIDE SUSP 30 ML CUP PO SCH (10:20)
[2017-12-27] MEDS: MULTIVITAMINS/MINERALS THERAPEUTIC TAB PO SCH (10:21)
--- NOTE | 2017-12-27 12:21 | EKG ---
Date Performed: 12/27/2017 Time Performed: 03:28:44 PTAGE: 87 years EKG: Atrial fibrillation with slow ventricular response Demand pacing Left axis deviation IV con duction defect Extensive infarct - age undetermined Abnormal ECG PREVIOUS TRACING : 12/19/2017 09.13 Compared to the prior study, the rate is slower. Pacer spik es are still seen but not as frequently. DOCTOR: Destin Dean Interpretating Date/Time 12/27/2017 12:19:24
--- NOTE | 2017-12-27 15:24 | PD.CAR.PN ---
CVT Progress Note Subjective/Hospital Course: 87-year-old male patient of Dr. Miller and Dr. Guille Bazan. History of recurrent VT or ventricular tachycardia, followed by successful placement of dual chamber ICD upgrade from dual chamber pacemaker 11/04/2017, also a history of Mobitz type 2 heart block. He underwent a recent nuclear stress test which was abnormal, read as positive for ischemia, moderate risk study, large size moderate to severe inferior basilar perfusion defect which is reversible. Recommendations were for cardiac catheterization. The patient underwent catheterization on 12/19/2017 which showed ejection fraction of 50%, left main disease of 50%, diffuse calcification of the vessels. The LAD was diffusely diseased. There was a 99% stenosis of the LAD and 99% stenosis of the diagonal branch. There was a large ramus vessel with 75% stenosis in the mid section. The right coronary artery was diffusely diseased throughout its length and the PDA appeared to be occluded within the posterolateral branch. We were consulted to evaluate for coronary artery bypass grafting x 3. PAST MEDICAL HISTORY: Ventricular tachycardia with a recent upgrade to a dual chamber ICD, Mobitz type 2 second degree heart block, Hypertension, Hyperlipidemia, Benign prostatic hypertrophy, [employer] pacemaker change out 11/04/2017. 12/23 all labs reviewed and radiology stable for surgery in am pain free over the weekend PFT FEV1 1.4 12/24 OR case case cancelled / pt extubated in OR rescheduled for surgery on Thur clear liquids today 12/25 right neck small hematoma ecchymosis scheduled for surgery in am on room air, no chest pain 12/26 surgery 1. Urgent Off-pump Coronary Artery Bypass Grafting x 3 with Left Internal Mammary Artery (CHÁVEZ) to Left Anterior Descending (LAD), reverse saphenous vein graft to the diagonal 1 (D1) branch of the Left Anterior Coronary Artery (RCA), reverse saphenous vein graft to the ramus marginalis (RM) 2. Circumferential Myocardial Adhesiolysis 3. Right Leg Endoscopic Vein [place] 4. Intraoperative Vein Mapping. extubated after surgery 12/27 up in chair, chest tube drined 190cc/ 12 hrs pacer interrogated by rep , initially in aflutter now back in sinus VVIR mode / paced at 60BPM remains on betapace transferred to stepdown unit no BB , labile BP Objective: GENERAL: A&O x 3 SKIN: Warm and dry. prevena dressing to chest HEAD: Normocephalic. EYES: No scleral icterus. No injection or drainage. NECK: Supple, trachea midline. No JVD or lymphadenopathy. CARDIOVASCULAR: Regular rate and rhythm without murmurs, gallops, or rubs. RESPIRATORY: Breath sounds equal bilaterally. No accessory muscle use. GASTROINTESTINAL: Abdomen soft, non-tender, nondistended. MUSCULOSKELETAL: No cyanosis, or edema. BACK: Nontender without obvious deformity. No CVA tenderness. Vital Signs Date Time Temp Pulse Resp B/P (MAP) Pulse Ox O2 Delivery O2 Flow Rate FiO2 12/27/17 12:01 56 12/27/17 11:16 96 Nasal Cannula 2.00 12/27/17 11:01 97.6 58 18 101/59 (73) 96 Arterial Line 12/27/17 11:01 96 Nasal Cannula 2.00 12/27/17 11:00 54 12/27/17 10:00 54 12/27/17 09:00 60 12/27/17 08:00 95 Nasal Cannula 2.00 12/27/17 08:00 98.1 60 20 108/64 (79) 96 111/84 (93) 12/27/17 03:00 97.5 54 20 103/54 (70) 96 126/48 (74) 12/27/17 03:00 95 Nasal Cannula 2.00 12/27/17 03:00 57 12/27/17 00:03 98.6 12/26/17 23:00 57 12/26/17 23:00 97.5 57 20 105/56 (72) 96 131/50 (77) 12/26/17 23:00 96 Nasal Cannula 2.00 12/26/17 20:59 98 Nasal Cannula 4.00 12/26/17 19:57 20 12/26/17 19:00 61 12/26/17 19:00 97.5 61 20 97/51 (66) 97 125/52 (76) 12/26/17 19:00 97 Nasal Cannula 4.00 12/26/17 16:51 95 Nasal Cannula 4.00 12/26/17 16:51 40 12/26/17 16:51 95 Nasal Cannula 4 Labs: Laboratory Tests Test 12/27/17 05:45 White Blood Count 8.1 TH/MM3 (4.0-11.0) Red Blood Count 3.17 MIL/MM3 (4.50-5.90) Hemoglobin 10.0 GM/DL (13.0-17.0) Hematocrit 28.8 % (39.0-51.0) Mean Corpuscular Volume 90.9 FL (80.0-100.0) Mean Corpuscular Hemoglobin 31.6 PG (27.0-34.0) Mean Corpuscular Hemoglobin Concent 34.7 % (32.0-36.0) Red Cell Distribution Width 14.1 % (11.6-17.2) Platelet Count 91 TH/MM3 (150-450) Mean Platelet Volume 8.8 FL (7.0-11.0) Blood Urea Nitrogen 12 MG/DL (7-18) Creatinine 0.81 MG/DL (0.60-1.30) Random Glucose 92 MG/DL (74-106) Calcium Level 8.0 MG/DL (8.5-10.1) Magnesium Level 1.9 MG/DL (1.5-2.5) Sodium Level 140 MEQ/L (136-145) Potassium Level 4.2 MEQ/L (3.5-5.1) Chloride Level 107 MEQ/L (98-107) Carbon Dioxide Level 20.3 MEQ/L (21.0-32.0) Anion Gap 13 MEQ/L (5-15) Estimat Glomerular Filtration Rate 90 ML/MIN (>89) Result Diagram: 12/27/1745 12/27/1745 (1) Coronary artery disease Plan: ASA, statin , hold on BB on betapace, 100% Vpaced BP too labile to start BB (2) Hyperlipemia Plan: on statin (3) Hypertension Plan: controlled (4) Ventricular tachyarrhythmia Plan: pt has ICD /pacer interrogated by rep and properly functioning Bela Isidro December 27, 2017 15:24
[2017-12-27] MEDS: DOCUSATE SODIUM 100 MG CAP PO SCH (21:21)
[2017-12-27] MEDS: SENNOSIDES 8.6 MG TAB PO SCH (21:21)
[2017-12-28] VITALS (26 sets, daily range): BP systolic 115–148; BP diastolic 57–89; PULSE 55–69; RESP 16–20; TEMP 97.9–98.7; O2SAT 93–98
[2017-12-28] MEDS: ceFAZolin 2 GM PREMIX 50 ML IV SCH (03:50)
[2017-12-28] MEDS: RESP: ALBUTEROL 2.5 MG/IPRATROPIUM 0.5 MG NEB (SCH) NEB ×5 (04:00→20:31)
[2017-12-28 04:26] LABS: AUTOMATED NEUTROPHIL # 7.9 TH/MM3 (1.8-7.7); BASOPHIL % 0.1 % (0.0-2.0); EOSINOPHIL % 0.5 % (0.0-4.0); HEMATOCRIT 25.9 % (39.0-51.0); LYMPH % 10.6 % (9.0-44.0); MEAN CELL VOLUME 90.8 FL (80.0-100.0); MEAN CORPUSCULAR HEMOGLOBIN 31.6 PG (27.0-34.0); MEAN CORPUSCULAR HGB CONC 34.8 % (32.0-36.0); MONO % 8.4 % (0.0-8.0); MONOCYTE # 0.8 TH/MM3 (0-0.9); NEUT % 80.4 % (16.0-70.0); PLATELET COUNT 108 TH/MM3 (150-450); RED BLOOD COUNT 2.85 MIL/MM3 (4.50-5.90); RED CELL DISTRIBUTION WIDTH 14.4 % (11.6-17.2); WHITE BLOOD COUNT 9.8 TH/MM3 (4.0-11.0)
[2017-12-28 04:49] LABS: BICARBONATE 26.5 MEQ/L (21.0-32.0); CREATININE 0.93 MG/DL (0.60-1.30); MAGNESIUM 2.1 MG/DL (1.5-2.5)
[2017-12-28] MEDS: PANTOPRAZOLE SOD 40 MG DELAYED RELEASE TAB PO SCH (05:24)
[2017-12-28] MEDS: INSULIN ASPART SUPPLEMENTAL SCALE SQ SCH ×4 (08:00→21:00)
[2017-12-28] MEDS: DOCUSATE SODIUM 100 MG CAP PO SCH ×2 (08:30→21:38)
[2017-12-28] MEDS: MAGNESIUM HYDROXIDE SUSP 30 ML CUP PO SCH (08:30)
[2017-12-28] MEDS: CLOPIDOGREL 75 MG TAB PO SCH (08:30)
[2017-12-28] MEDS: MULTIVITAMINS/MINERALS THERAPEUTIC TAB PO SCH (08:30)
[2017-12-28] MEDS: PRAVASTATIN SOD 10 MG TAB PO SCH (08:30)
[2017-12-28] MEDS: POLYETHYLENE GLYCOL 17 GM PKG PO SCH (08:30)
[2017-12-28] MEDS: ALLOPURINOL 100 MG TAB PO SCH (08:30)
[2017-12-28] MEDS: SOTALOL HCL 80 MG TAB PO SCH ×2 (08:31→21:36)
[2017-12-28] MEDS: SODIUM CHLORIDE 0.9% FLUSH 10 ML FLUSH IV FLUSH SCH ×2 (08:31→21:38)
[2017-12-28] MEDS: ASPIRIN 81 MG CHEW TAB PO SCH (08:31)
--- NOTE | 2017-12-28 12:37 | PD.CAR.PN ---
CVT Progress Note CVT: POD #: 2 Subjective/Hospital Course: 87-year-old male patient of Dr. Miller and Dr. Guille Bazan. History of recurrent VT or ventricular tachycardia, followed by successful placement of dual chamber ICD upgrade from dual chamber pacemaker 11/04/2017, also a history of Mobitz type 2 heart block. He underwent a recent nuclear stress test which was abnormal, read as positive for ischemia, moderate risk study, large size moderate to severe inferior basilar perfusion defect which is reversible. Recommendations were for cardiac catheterization. The patient underwent catheterization on 12/19/2017 which showed ejection fraction of 50%, left main disease of 50%, diffuse calcification of the vessels. The LAD was diffusely diseased. There was a 99% stenosis of the LAD and 99% stenosis of the diagonal branch. There was a large ramus vessel with 75% stenosis in the mid section. The right coronary artery was diffusely diseased throughout its length and the PDA appeared to be occluded within the posterolateral branch. We were consulted to evaluate for coronary artery bypass grafting x 3. PAST MEDICAL HISTORY: Ventricular tachycardia with a recent upgrade to a dual chamber ICD, Mobitz type 2 second degree heart block, Hypertension, Hyperlipidemia, Benign prostatic hypertrophy, [employer] pacemaker change out 11/04/2017. 12/23 all labs reviewed and radiology stable for surgery in am pain free over the weekend PFT FEV1 1.4 12/24 OR case case cancelled / pt extubated in OR rescheduled for surgery on Thur clear liquids today 12/25 right neck small hematoma ecchymosis scheduled for surgery in am on room air, no chest pain 12/26 surgery 1. Urgent Off-pump Coronary Artery Bypass Grafting x 3 with Left Internal Mammary Artery (CHÁVEZ) to Left Anterior Descending (LAD), reverse saphenous vein graft to the diagonal 1 (D1) branch of the Left Anterior Coronary Artery (RCA), reverse saphenous vein graft to the ramus marginalis (RM) 2. Circumferential Myocardial Adhesiolysis 3. Right Leg Endoscopic Vein [place] 4. Intraoperative Vein Mapping. extubated after surgery 12/27 up in chair, chest tube drined 190cc/ 12 hrs pacer interrogated by rep , initially in aflutter now back in sinus VVIR mode / paced at 60BPM remains on betapace transferred to stepdown unit no BB , labile BP 12/28/17 Doing well, no complaints Objective: Vital Signs Date Time Temp Pulse Resp B/P (MAP) Pulse Ox O2 Delivery O2 Flow Rate FiO2 12/28/17 11:00 97.9 57 20 137/62 (87) 96 12/28/17 11:00 69 12/28/17 11:00 96 Nasal Cannula 1.00 12/28/17 10:00 57 12/28/17 09:00 60 12/28/17 08:21 93 Nasal Cannula 2.00 12/28/17 08:00 60 12/28/17 07:00 98.4 55 20 117/57 (77) 96 12/28/17 07:00 96 Nasal Cannula 2.00 12/28/17 07:00 58 12/28/17 06:06 62 12/28/17 05:07 60 12/28/17 04:50 58 12/28/17 03:59 98.3 58 20 115/57 (76) 93 12/28/17 03:59 Nasal Cannula 3.00 12/28/17 03:35 58 12/28/17 02:08 59 12/28/17 01:07 58 12/27/17 23:40 98.4 59 19 124/60 (81) 91 12/27/17 23:40 60 12/27/17 23:40 Nasal Cannula 3.00 12/27/17 19:50 56 12/27/17 19:50 Nasal Cannula 2.00 12/27/17 19:50 98.6 58 20 126/60 (82) 92 12/27/17 19:33 93 Nasal Cannula 2.00 12/27/17 18:01 58 12/27/17 17:00 74 12/27/17 16:01 58 12/27/17 15:22 93 Nasal Cannula 2.00 12/27/17 15:22 97.7 57 18 122/56 (78) 93 12/27/17 15:00 56 12/27/17 14:00 58 12/27/17 13:00 54 Labs: Laboratory Tests Test 12/28/17 03:50 White Blood Count 9.8 TH/MM3 (4.0-11.0) Red Blood Count 2.85 MIL/MM3 (4.50-5.90) Hemoglobin 9.0 GM/DL (13.0-17.0) Hematocrit 25.9 % (39.0-51.0) Mean Corpuscular Volume 90.8 FL (80.0-100.0) Mean Corpuscular Hemoglobin 31.6 PG (27.0-34.0) Mean Corpuscular Hemoglobin Concent 34.8 % (32.0-36.0) Red Cell Distribution Width 14.4 % (11.6-17.2) Platelet Count 108 TH/MM3 (150-450) Mean Platelet Volume 9.0 FL (7.0-11.0) Neutrophils (%) (Auto) 80.4 % (16.0-70.0) Lymphocytes (%) (Auto) 10.6 % (9.0-44.0) Monocytes (%) (Auto) 8.4 % (0.0-8.0) Eosinophils (%) (Auto) 0.5 % (0.0-4.0) Basophils (%) (Auto) 0.1 % (0.0-2.0) Neutrophils # (Auto) 7.9 TH/MM3 (1.8-7.7) Lymphocytes # (Auto) 1.0 TH/MM3 (1.0-4.8) Monocytes # (Auto) 0.8 TH/MM3 (0-0.9) Eosinophils # (Auto) 0.0 TH/MM3 (0-0.4) Basophils # (Auto) 0.0 TH/MM3 (0-0.2) CBC Comment DIFF FINAL Differential Comment Blood Urea Nitrogen 17 MG/DL (7-18) Creatinine 0.93 MG/DL (0.60-1.30) Random Glucose 104 MG/DL (74-106) Calcium Level 8.0 MG/DL (8.5-10.1) Magnesium Level 2.1 MG/DL (1.5-2.5) Sodium Level 139 MEQ/L (136-145) Potassium Level 4.1 MEQ/L (3.5-5.1) Chloride Level 104 MEQ/L (98-107) Carbon Dioxide Level 26.5 MEQ/L (21.0-32.0) Anion Gap 9 MEQ/L (5-15) Estimat Glomerular Filtration Rate 77 ML/MIN (>89) Result Diagram: 12/28/17 0350 12/28/17 035 Cardiovascular: RRR Telemetry: NSR Pulmonary: CTA GI/: NABS, NT Incision: dry and intact CT: ~70ml/12 hrs Plan: Remove chest tubes diurese Stim BM Encourage ambulation Up to chair Start lopressor D/C planning (1) Coronary artery disease Plan: ASA, statin , hold on BB on betapace, 100% Vpaced BP too labile to start BB (2) Hyperlipemia Plan: on statin (3) Hypertension Plan: controlled (4) Ventricular tachyarrhythmia Plan: pt has ICD /pacer interrogated by rep and properly functioning Samira Redd MD December 28, 2017 12:37
[2017-12-28] MEDS ORDERED: PILL SPLITTER OTHER PRN (13:00)
[2017-12-28] MEDS: METOPROLOL TARTRATE 25 MG TAB PO SCH ×2 (13:15→21:36)
[2017-12-28] MEDS: POTASSIUM CHLORIDE 10 MEQ CONTROLLED RELEASE TAB PO SCH ×2 (13:16→21:37)
[2017-12-28] MEDS: FUROSEMIDE 40 MG/4 ML VIAL IV PUSH SCH (17:04)
[2017-12-28] MEDS: ACETAMINOPHEN/HYDROcodone 325 MG/5 MG TAB PO PRN (21:37)
[2017-12-28] MEDS: SENNOSIDES 8.6 MG TAB PO SCH (21:38)
[2017-12-29] VITALS (25 sets, daily range): BP systolic 109–124; BP diastolic 54–60; PULSE 54–66; RESP 16–20; TEMP 98–98.7; O2SAT 94–96
[2017-12-29] MEDS: PANTOPRAZOLE SOD 40 MG DELAYED RELEASE TAB PO SCH (06:30)
[2017-12-29] MEDS: RESP: ALBUTEROL 2.5 MG/IPRATROPIUM 0.5 MG NEB (SCH) NEB (07:57)
[2017-12-29] MEDS: INSULIN ASPART SUPPLEMENTAL SCALE SQ SCH ×4 (08:00→21:00)
[2017-12-29] MEDS: ALLOPURINOL 100 MG TAB PO SCH (08:38)
[2017-12-29] MEDS: POLYETHYLENE GLYCOL 17 GM PKG PO SCH (08:38)
[2017-12-29] MEDS: DOCUSATE SODIUM 100 MG CAP PO SCH ×2 (08:38→21:31)
[2017-12-29] MEDS: CLOPIDOGREL 75 MG TAB PO SCH (08:38)
[2017-12-29] MEDS: METOPROLOL TARTRATE 25 MG TAB PO SCH ×2 (08:38→21:33)
[2017-12-29] MEDS: PRAVASTATIN SOD 10 MG TAB PO SCH (08:38)
[2017-12-29] MEDS: MAGNESIUM HYDROXIDE SUSP 30 ML CUP PO SCH (08:38)
[2017-12-29] MEDS: SOTALOL HCL 80 MG TAB PO SCH ×2 (08:38→21:34)
[2017-12-29] MEDS: MULTIVITAMINS/MINERALS THERAPEUTIC TAB PO SCH (08:38)
[2017-12-29] MEDS: FUROSEMIDE 40 MG/4 ML VIAL IV PUSH SCH ×2 (08:39→18:00)
[2017-12-29] MEDS: POTASSIUM CHLORIDE 10 MEQ CONTROLLED RELEASE TAB PO SCH ×2 (08:39→21:31)
[2017-12-29] MEDS: ASPIRIN 81 MG CHEW TAB PO SCH (08:39)
[2017-12-29] MEDS: SODIUM CHLORIDE 0.9% FLUSH 10 ML FLUSH IV FLUSH SCH ×2 (08:40→21:41)
--- NOTE | 2017-12-29 10:34 | PD.CAR.PN ---
CVT Progress Note CVT: POD #: 3 Subjective/Hospital Course: 87-year-old male patient of Dr. Miller and Dr. Guille Bazan. History of recurrent VT or ventricular tachycardia, followed by successful placement of dual chamber ICD upgrade from dual chamber pacemaker 11/04/2017, also a history of Mobitz type 2 heart block. He underwent a recent nuclear stress test which was abnormal, read as positive for ischemia, moderate risk study, large size moderate to severe inferior basilar perfusion defect which is reversible. Recommendations were for cardiac catheterization. The patient underwent catheterization on 12/19/2017 which showed ejection fraction of 50%, left main disease of 50%, diffuse calcification of the vessels. The LAD was diffusely diseased. There was a 99% stenosis of the LAD and 99% stenosis of the diagonal branch. There was a large ramus vessel with 75% stenosis in the mid section. The right coronary artery was diffusely diseased throughout its length and the PDA appeared to be occluded within the posterolateral branch. We were consulted to evaluate for coronary artery bypass grafting x 3. PAST MEDICAL HISTORY: Ventricular tachycardia with a recent upgrade to a dual chamber ICD, Mobitz type 2 second degree heart block, Hypertension, Hyperlipidemia, Benign prostatic hypertrophy, [employer] pacemaker change out 11/04/2017. 12/23 all labs reviewed and radiology stable for surgery in am pain free over the weekend PFT FEV1 1.4 12/24 OR case case cancelled / pt extubated in OR rescheduled for surgery on Thur clear liquids today 12/25 right neck small hematoma ecchymosis scheduled for surgery in am on room air, no chest pain 12/26 surgery 1. Urgent Off-pump Coronary Artery Bypass Grafting x 3 with Left Internal Mammary Artery (CHÁVEZ) to Left Anterior Descending (LAD), reverse saphenous vein graft to the diagonal 1 (D1) branch of the Left Anterior Coronary Artery (RCA), reverse saphenous vein graft to the ramus marginalis (RM) 2. Circumferential Myocardial Adhesiolysis 3. Right Leg Endoscopic Vein [place] 4. Intraoperative Vein Mapping. extubated after surgery 12/27 up in chair, chest tube drined 190cc/ 12 hrs pacer interrogated by rep , initially in aflutter now back in sinus VVIR mode / paced at 60BPM remains on betapace transferred to stepdown unit no BB , labile BP 12/28/17 Doing well, no complaints 12/29/17 Doing well, no complaints. Remains on O2. -BM Objective: Vital Signs Date Time Temp Pulse Resp B/P (MAP) Pulse Ox O2 Delivery O2 Flow Rate FiO2 12/29/17 09:00 62 12/29/17 08:00 57 12/29/17 07:59 96 3.00 12/29/17 07:00 98.2 66 20 124/60 (81) 96 12/29/17 07:00 96 Nasal Cannula 2.00 12/29/17 07:00 61 12/29/17 06:00 54 12/29/17 05:00 57 12/29/17 04:00 96 Nasal Cannula 2.00 12/29/17 04:00 58 12/29/17 03:00 58 12/29/17 03:00 98.6 65 16 113/59 (77) 96 12/29/17 02:00 58 12/29/17 01:00 58 12/29/17 00:00 62 12/29/17 00:00 96 Nasal Cannula 2.00 12/28/17 23:00 98.7 59 16 148/67 (94) 96 12/28/17 22:00 60 12/28/17 21:00 60 12/28/17 20:33 93 Nasal Cannula 3.00 12/28/17 20:00 98.7 65 16 132/82 (99) 97 12/28/17 20:00 60 12/28/17 20:00 97 Nasal Cannula 2.00 12/28/17 19:00 58 12/28/17 18:00 58 12/28/17 17:00 59 12/28/17 16:00 65 12/28/17 15:00 98.1 62 20 131/89 (103) 98 12/28/17 15:00 59 12/28/17 15:00 98 Nasal Cannula 2.00 12/28/17 14:00 60 12/28/17 13:00 58 12/28/17 12:00 59 12/28/17 11:00 97.9 57 20 137/62 (87) 96 12/28/17 11:00 69 12/28/17 11:00 96 Nasal Cannula 1.00 Result Diagram: 12/28/17 0350 12/28/17 0350 Cardiovascular: RRR Telemetry: NSR Pulmonary: CTA GI/: NABS, NT Incision: dry and intact Plan: Diurese Stim BM Encourage ambulation Anticipate D/C tomorrow (1) Coronary artery disease Plan: ASA, statin , hold on BB on betapace, 100% Vpaced BP too labile to start BB (2) Hyperlipemia Plan: on statin (3) Hypertension Plan: controlled (4) Ventricular tachyarrhythmia Plan: pt has ICD /pacer interrogated by rep and properly functioning Samira Redd MD December 29, 2017 10:34
[2017-12-29] MEDS: SENNOSIDES 8.6 MG TAB PO SCH (21:31)
[2017-12-29] MEDS: ACETAMINOPHEN/HYDROcodone 325 MG/5 MG TAB PO PRN (21:35)
[2017-12-30] VITALS (26 sets, daily range): BP systolic 94–115; BP diastolic 50–59; PULSE 54–64; RESP 12–16; TEMP 98–98.7; O2SAT 93–97
[2017-12-30] MEDS: PANTOPRAZOLE SOD 40 MG DELAYED RELEASE TAB PO SCH (06:39)
[2017-12-30 09:30] LABS: CALCIUM 8.4 MG/DL (8.5-10.1); CREATININE 0.97 MG/DL (0.60-1.30); MAGNESIUM 2.3 MG/DL (1.5-2.5)
--- NOTE | 2017-12-30 09:49 | RADRPT ---
EXAM DATE/TIME: 12/30/2017 09:02 [facility] COMPARISON: CHEST SINGLE AP, December 27, 2017, 4:54. INDICATIONS : Chest tube removed. MEDICAL HISTORY : Hypertension. hyperlipidema SURGICAL HISTORY : pacemaker. ENCOUNTER: Initial ACUITY: 1 week PAIN SCORE: 0/10 LOCATION: Bilateral chest FINDINGS: A single view of the chest demonstrates the lungs to be symmetrically aerated with persistent left ba silar consolidation/effusion. Minimal atelectatic changes of the right hemidiaphragm. Accounting for the low lung findings, heart size is still borderline prominent. Left-sided thoracostomy tube has bee n removed without pneumothorax. Left subclavian bipolar pacer/defibrillator is radiographically intac t. Median sternotomy wires are intact. Mediastinal drain has been removed. Multiple right-sided old r ib fractures as well as an old fracture deformity of the right clavicle. CONCLUSION: 1. Interval removal of left-sided thoracostomy tube and mediastinal drain. No pneumothorax. 2. Persistent left basilar consolidation/effusion. Minimal atelectatic changes above the right hemidi aphragm. 3. Compensated cardiomegaly. 4. Multiple old healed right sided rib fractures and an old right clavicular diaphyseal fracture. Александр Farmer MD on December 30, 2017 at 9:44 Board Certified Radiologist. This report was verified electronically.
[2017-12-30] MEDS: ASPIRIN 81 MG CHEW TAB PO SCH (10:17)
[2017-12-30] MEDS: POTASSIUM CHLORIDE 10 MEQ CONTROLLED RELEASE TAB PO SCH ×2 (10:18→21:56)
[2017-12-30] MEDS: SOTALOL HCL 80 MG TAB PO SCH ×2 (10:18→21:54)
[2017-12-30] MEDS: DOCUSATE SODIUM 100 MG CAP PO SCH ×2 (10:18→21:55)
[2017-12-30] MEDS: ALLOPURINOL 100 MG TAB PO SCH (10:18)
[2017-12-30] MEDS: MULTIVITAMINS/MINERALS THERAPEUTIC TAB PO SCH (10:18)
[2017-12-30] MEDS: CLOPIDOGREL 75 MG TAB PO SCH (10:18)
[2017-12-30] MEDS: METOPROLOL TARTRATE 25 MG TAB PO SCH (10:18)
[2017-12-30] MEDS: PRAVASTATIN SOD 10 MG TAB PO SCH (10:18)
[2017-12-30] MEDS: POLYETHYLENE GLYCOL 17 GM PKG PO SCH (10:19)
[2017-12-30] MEDS: INSULIN ASPART SUPPLEMENTAL SCALE SQ SCH ×4 (10:19→21:00)
[2017-12-30] MEDS: SODIUM CHLORIDE 0.9% FLUSH 10 ML FLUSH IV FLUSH SCH ×2 (10:19→21:55)
[2017-12-30] MEDS: MAGNESIUM HYDROXIDE SUSP 30 ML CUP PO SCH (10:19)
[2017-12-30] MEDS: FUROSEMIDE 40 MG/4 ML VIAL IV PUSH SCH ×2 (10:25→16:55)
--- NOTE | 2017-12-30 11:14 | PD.CAR.PN ---
CVT Progress Note Subjective/Hospital Course: 87-year-old male patient of Dr. Miller and Dr. Guille Bazan. History of recurrent VT or ventricular tachycardia, followed by successful placement of dual chamber ICD upgrade from dual chamber pacemaker 11/04/2017, also a history of Mobitz type 2 heart block. He underwent a recent nuclear stress test which was abnormal, read as positive for ischemia, moderate risk study, large size moderate to severe inferior basilar perfusion defect which is reversible. Recommendations were for cardiac catheterization. The patient underwent catheterization on 12/19/2017 which showed ejection fraction of 50%, left main disease of 50%, diffuse calcification of the vessels. The LAD was diffusely diseased. There was a 99% stenosis of the LAD and 99% stenosis of the diagonal branch. There was a large ramus vessel with 75% stenosis in the mid section. The right coronary artery was diffusely diseased throughout its length and the PDA appeared to be occluded within the posterolateral branch. We were consulted to evaluate for coronary artery bypass grafting x 3. PAST MEDICAL HISTORY: Ventricular tachycardia with a recent upgrade to a dual chamber ICD, Mobitz type 2 second degree heart block, Hypertension, Hyperlipidemia, Benign prostatic hypertrophy, [employer] pacemaker change out 11/04/2017. 12/23 all labs reviewed and radiology stable for surgery in am pain free over the weekend PFT FEV1 1.4 12/24 OR case case cancelled / pt extubated in OR rescheduled for surgery on Thur clear liquids today 12/25 right neck small hematoma ecchymosis scheduled for surgery in am on room air, no chest pain 12/26 surgery 1. Urgent Off-pump Coronary Artery Bypass Grafting x 3 with Left Internal Mammary Artery (CHÁVEZ) to Left Anterior Descending (LAD), reverse saphenous vein graft to the diagonal 1 (D1) branch of the Left Anterior Coronary Artery (RCA), reverse saphenous vein graft to the ramus marginalis (RM) 2. Circumferential Myocardial Adhesiolysis 3. Right Leg Endoscopic Vein [place] 4. Intraoperative Vein Mapping. extubated after surgery 12/27 up in chair, chest tube drined 190cc/ 12 hrs pacer interrogated by rep , initially in aflutter now back in sinus VVIR mode / paced at 60BPM remains on betapace transferred to stepdown unit no BB , labile BP 12/28/17 Doing well, no complaints 12/29/17 Doing well, no complaints. Remains on O2. -BM 12/30 remains on 2 liter nasal cannula eval for dc in am to SNF continue lasix for now , PT/OT CXR reviewed / some consolidation left lower lobe add doxycycline/ re-add scheduled nebs with ezpap Objective: GENERAL: A&O SKIN: Warm and dry. prevena dressing to chest HEAD: Normocephalic. EYES: No scleral icterus. No injection or drainage. NECK: Supple, trachea midline. No JVD or lymphadenopathy. CARDIOVASCULAR: Regular rate and rhythm without murmurs, gallops, or rubs. RESPIRATORY: Breath sounds equal bilaterally. No accessory muscle use. GASTROINTESTINAL: Abdomen soft, non-tender, nondistended. MUSCULOSKELETAL: No cyanosis, or edema. BACK: Nontender without obvious deformity. No CVA tenderness. Vital Signs Date Time Temp Pulse Resp B/P (MAP) Pulse Ox O2 Delivery O2 Flow Rate FiO2 12/30/17 06:00 57 12/30/17 05:00 59 12/30/17 04:00 98.5 54 16 99/53 (68) 96 12/30/17 04:00 59 12/30/17 04:00 96 Nasal Cannula 2.00 12/30/17 03:00 58 12/30/17 02:00 56 12/30/17 01:00 58 12/30/17 00:02 96 Nasal Cannula 2.00 12/30/17 00:00 56 12/30/17 00:00 98.6 57 16 94/50 (65) 96 12/29/17 23:00 60 12/29/17 22:00 62 12/29/17 21:00 60 12/29/17 20:00 98.6 60 16 109/59 (76) 96 12/29/17 20:00 96 Nasal Cannula 2.00 12/29/17 20:00 62 12/29/17 19:00 58 12/29/17 18:00 63 12/29/17 17:00 63 12/29/17 16:00 58 12/29/17 15:00 94 Nasal Cannula 2.00 12/29/17 15:00 58 12/29/17 15:00 98.7 60 20 122/54 (76) 94 12/29/17 14:00 62 12/29/17 13:00 60 12/29/17 12:00 58 Labs: Laboratory Tests Test 12/30/17 08:57 Blood Urea Nitrogen 21 MG/DL (7-18) Creatinine 0.97 MG/DL (0.60-1.30) Random Glucose 174 MG/DL (74-106) Calcium Level 8.4 MG/DL (8.5-10.1) Magnesium Level 2.3 MG/DL (1.5-2.5) Sodium Level 138 MEQ/L (136-145) Potassium Level 4.3 MEQ/L (3.5-5.1) Chloride Level 99 MEQ/L (98-107) Carbon Dioxide Level 30.0 MEQ/L (21.0-32.0) Anion Gap 9 MEQ/L (5-15) Estimat Glomerular Filtration Rate 73 ML/MIN (>89) Result Diagram: 12/28/17 0350 12/30/17 0857 Telemetry: intermittent AV paced (1) Coronary artery disease Plan: ASA, statin , continue to hold on BB / BP labile / HR 58 on betapace, intermittent A/V paced re-add nebs/ OOB ambulate wean 02 as tolerated, continue scheduled diuretic for now (2) Hyperlipemia Plan: on statin (3) Hypertension Plan: controlled (4) Ventricular tachyarrhythmia Plan: pt has ICD /pacer interrogated by rep and properly functioning Bela Isidro December 30, 2017 11:14
[2017-12-30] MEDS ORDERED: THERM PO (11:27)
[2017-12-30] MEDS ORDERED: SOTA80 PO (11:27)
[2017-12-30] MEDS ORDERED: DOXY100C PO (11:27)
[2017-12-30] MEDS ORDERED: FURO1TAB60 PO (11:27)
[2017-12-30] MEDS ORDERED: DOCU1CAP39 PO (11:27)
[2017-12-30] MEDS ORDERED: PLAV75TA29 PO (11:27)
[2017-12-30] MEDS ORDERED: ASPI81 PO (11:27)
[2017-12-30] MEDS ORDERED: POTA-163 PO (11:27)
[2017-12-30] MEDS ORDERED: TRAM50TA PO (11:33)
--- NOTE | 2017-12-30 11:46 | HHI.DS ---
Discharge Summary Admission Date December 20, 2017 at 11:33 Discharge Date: December 31, 2017 Admitting Diagnosis 1. Severe Multi Vessel Coronary Artery Disease. 2. Severe Pericarditis 3. Dense Myocardial Adhesions 4. Vascular Disease (1) Coronary artery disease ICD Codes: I25.10 - Atherosclerotic heart disease of [place] coronary artery without angina pectoris (2) Ventricular tachyarrhythmia Diagnosis: Principal ICD Codes: I47.2 - Ventricular tachycardia Status: Chronic (3) Hyperlipemia Diagnosis: Principal ICD Codes: E78.5 - Hyperlipidemia, unspecified (4) Hypertension Diagnosis: Principal ICD Codes: I10 - Essential (primary) hypertension (5) S/P CABG x 3 Diagnosis: Secondary ICD Codes: Z95.1 - Presence of aortocoronary bypass graft Procedures 12/26 1. Urgent Off-pump Coronary Artery Bypass Grafting x 3 with Left Internal Mammary Artery (CHÁVEZ) to Left Anterior Descending (LAD), reverse saphenous vein graft to the diagonal 1 (D1) branch of the Left Anterior Coronary Artery (RCA), reverse saphenous vein graft to the ramus marginalis (RM) 2. Circumferential Myocardial Adhesiolysis 3. Right Leg Endoscopic Vein [place] 4. Intraoperative Vein Mapping. Brief History 87-year-old male patient of Dr. Miller and Dr. Guille Bazan. History of recurrent VT or ventricular tachycardia, followed by successful placement of dual chamber ICD upgrade from dual chamber pacemaker 11/04/2017, also a history of Mobitz type 2 heart block. He underwent a recent nuclear stress test which was abnormal, read as positive for ischemia, moderate risk study, large size moderate to severe inferior basilar perfusion defect which is reversible. Recommendations were for cardiac catheterization. The patient underwent catheterization on 12/19/2017 which showed ejection fraction of 50%, left main disease of 50%, diffuse calcification of the vessels. The LAD was diffusely diseased. There was a 99% stenosis of the LAD and 99% stenosis of the diagonal branch. There was a large ramus vessel with 75% stenosis in the mid section. The right coronary artery was diffusely diseased throughout its length and the PDA appeared to be occluded within the posterolateral branch. We were consulted to evaluate for coronary artery bypass grafting x 3. PAST MEDICAL HISTORY: Ventricular tachycardia with a recent upgrade to a dual chamber ICD, Mobitz type 2 second degree heart block, Hypertension, Hyperlipidemia, Benign prostatic hypertrophy, [employer] pacemaker change out 11/04/2017. CBC/BMP: 12/28/17 0350 12/30/17 0857 Significant Findings Laboratory Tests Test 12/28/17 03:50 12/30/17 08:57 Red Blood Count 2.85 MIL/MM3 (4.50-5.90) Hemoglobin 9.0 GM/DL (13.0-17.0) Hematocrit 25.9 % (39.0-51.0) Platelet Count 108 TH/MM3 (150-450) Neutrophils (%) (Auto) 80.4 % (16.0-70.0) Monocytes (%) (Auto) 8.4 % (0.0-8.0) Neutrophils # (Auto) 7.9 TH/MM3 (1.8-7.7) Calcium Level 8.0 MG/DL (8.5-10.1) 8.4 MG/DL (8.5-10.1) Estimat Glomerular Filtration Rate 77 ML/MIN (>89) 73 ML/MIN (>89) Blood Urea Nitrogen 21 MG/DL (7-18) Random Glucose 174 MG/DL (74-106) Imaging Last Impressions Chest X-Ray 12/30/17 0000 Signed Impressions: Service Date/Time: Saturday, December 30, 2017 09:02 - CONCLUSION: 1. Interval removal of left-sided thoracostomy tube and mediastinal drain. No pneumothorax. 2. Persistent left basilar consolidation/effusion. Minimal atelectatic changes above the right hemidiaphragm. 3. Compensated cardiomegaly. 4. Multiple old healed right sided rib fractures and an old right clavicular diaphyseal fracture. Александр Farmer MD Lower Extremity Ultrasound 12/20/17 0000 Signed Impressions: Service Date/Time: Wednesday, December 20, 2017 11:53 - CONCLUSION: Venous mapping as above. Deven Cortez MD Carotid Artery Ultrasound 12/20/17 0000 Signed Impressions: Service Date/Time: Wednesday, December 20, 2017 12:14 - CONCLUSION: 1. Mild atherosclerotic plaquing at the right carotid bifurcation. 2. Moderate atherosclerotic plaquing at the left carotid bifurcation with mild elevation of velocity in the left internal carotid artery. This suggests a mild to moderate stenosis. If clinically indicated, a CTA of the carotids could be performed for further evaluation. Deven Cortez MD Chest CT 12/19/17 0000 Signed Impressions: Service Date/Time: December 18:13 - CONCLUSION: 1. Very minimal calcification within the ascending aorta. 2. Extensive coronary artery calcifications. 3. 11 mm nodule right lower lobe with adjacent bronchiectasis. Follow up CT chest in 6 months recommended for stability. 4. [place] density right middle lobe measuring 9 mm, likely benign. Carrillo Samayoa MD PE at Discharge GENERAL: Awake and alert SKIN: Warm and dry. prevena dressing to chest HEAD: Normocephalic. EYES: No scleral icterus. No injection or drainage. NECK: Supple, trachea midline. No JVD or lymphadenopathy. CARDIOVASCULAR: Regular rate and rhythm without murmurs, gallops, or rubs. RESPIRATORY: Breath sounds equal bilaterally. No accessory muscle use. GASTROINTESTINAL: Abdomen soft, non-tender, nondistended. MUSCULOSKELETAL: No cyanosis, or edema. BACK: Nontender without obvious deformity. No CVA tenderness. Hospital Course 12/23 all labs reviewed and radiology stable for surgery in am pain free over the weekend PFT FEV1 1.4 12/24 OR case case cancelled / pt extubated in OR rescheduled for surgery on Thur clear liquids today 12/25 right neck small hematoma ecchymosis scheduled for surgery in am on room air, no chest pain 12/26 surgery 1. Urgent Off-pump Coronary Artery Bypass Grafting x 3 with Left Internal Mammary Artery (CHÁVEZ) to Left Anterior Descending (LAD), reverse saphenous vein graft to the diagonal 1 (D1) branch of the Left Anterior Coronary Artery (RCA), reverse saphenous vein graft to the ramus marginalis (RM) 2. Circumferential Myocardial Adhesiolysis 3. Right Leg Endoscopic Vein [place] 4. Intraoperative Vein Mapping. extubated after surgery 12/27 up in chair, chest tube drined 190cc/ 12 hrs pacer interrogated by rep , initially in aflutter now back in sinus VVIR mode / paced at 60BPM remains on betapace transferred to stepdown unit no BB , labile BP 12/28/17 Doing well, no complaints 12/29/17 Doing well, no complaints. Remains on O2. -BM 12/30 remains on 2 liter nasal cannula eval for dc in am to SNF continue lasix for now , PT/OT CXR reviewed / some consolidation left lower lobe add doxycycline/ re-add scheduled nebs with ezpap Pt Condition on Discharge: Fair Discharge Disposition: Discharge to SNF Discharge Instructions DIET: Follow Instructions for: Heart Healthy Diet Activities you can perform: Full Weight Bearing, Shower Only-No Bath Activities to avoid: Strenuous Activity, Driving Additional Activity Instructio: no lifting > 8 lbs or gallon of milk Follow up Referrals: Cardiology, Interventional - 4 Weeks @ [facility] with Luci Miller MD PCP Follow-up - 2 Weeks with Guille Bazan DO Surgical - 2 Weeks with Tristan Anderson MD New Medications: Furosemide (Lasix) 40 Mg Tab 40 MG PO DAILY for edema , #7 TAB 0 Refills Potassium Chloride ER (Potassium Chloride ER) 20 Meq Tab 20 MEQ PO DAILY for Electrolyte Replacement, #7 TAB 0 Refills Tramadol (Tramadol) 50 Mg Tab 50 MG PO Q8H PRN for PAIN, #30 TAB 0 Refills Aspirin (Tgt Aspirin) 81 Mg Chw 81 MG PO DAILY for Blood Clot Prevention, #31 EA 2 Refills Clopidogrel (Plavix) 75 Mg Tab 75 MG PO DAILY for Blood Clot Prevention, #30 TAB 2 Refills Docusate Sodium (Dok) 100 Mg Cap 100 MG PO BID for Constipation, #60 CAP 0 Refills Doxycycline Hyclate (Doxycycline Hyclate) 100 Mg Cap 100 MG PO BID for bronchitis , #12 CAP 0 Refills Multiple Vitamins W/ Minerals (Thera M Plus) 1 Tab 1 TAB PO DAILY for multi vitamin, #30 TAB 0 Refills Sotalol (Sorine) 80 Mg Tab 80 MG PO Q12HR for heart rhythm, #60 TAB 1 Refill Continued Medications: Allopurinol (Allopurinol) 100 Mg Tab 100 MG PO DAILY for Gout, #30 TAB 0 Refills Fish Oil-Cholecalciferol (Fish Oil + D3) 1,200-1,000 Mg-Unit Cap 1 CAP PO DAILY for Nutritional Supplement, #30 CAP 0 Refills Glucosamine-Chondroitin (Glucosamine-Chondroitin) 500-400 Mg Tab 1 TAB PO DAILY for Herbal Supplements, TAB 0 Refills Misc Natural Products (Tart Maynard Advanced) 30 Mg-250 Mg-75 Mg-75 Mg-20 Mg Cap 1 CAP PO DAILY Pravastatin (Pravastatin) 10 Mg Tab 10 MG PO DAILY for Cholesterol Management, #30 TAB 0 Refills Discontinued Medications: Lisinopril (Lisinopril) 5 Mg Tab 5 MG PO DAILY for Blood Pressure Management, #30 TAB 0 Refills Metoprolol Tartrate (Metoprolol Tartrate) 50 Mg Tab 50 MG PO BID, #60 TAB 0 Refills Bela Iisdro December 30, 2017 11:46
[2017-12-30] MEDS: DOXYCYCLINE HYCLATE 100 MG CAP PO SCH (13:22)
[2017-12-30] MEDS: RESP: ALBUTEROL 2.5 MG/IPRATROPIUM 0.5 MG NEB (SCH) NEB (15:50)
[2017-12-30] MEDS: SENNOSIDES 8.6 MG TAB PO SCH (21:55)
[2017-12-31] VITALS (16 sets, daily range): BP systolic 108–128; BP diastolic 51–60; PULSE 56–129; RESP 16–18; TEMP 97.4–98; O2SAT 93–98
[2017-12-31] MEDS: DOXYCYCLINE HYCLATE 100 MG CAP PO SCH (00:17)
[2017-12-31] MEDS: PANTOPRAZOLE SOD 40 MG DELAYED RELEASE TAB PO SCH (06:16)
[2017-12-31] MEDS: INSULIN ASPART SUPPLEMENTAL SCALE SQ SCH (08:26)
[2017-12-31] MEDS: RESP: ALBUTEROL 2.5 MG/IPRATROPIUM 0.5 MG NEB (SCH) NEB (09:19)
[2017-12-31] MEDS: POLYETHYLENE GLYCOL 17 GM PKG PO SCH (09:24)
[2017-12-31] MEDS: POTASSIUM CHLORIDE 10 MEQ CONTROLLED RELEASE TAB PO SCH (09:25)
[2017-12-31] MEDS: PRAVASTATIN SOD 10 MG TAB PO SCH (09:25)
[2017-12-31] MEDS: DOCUSATE SODIUM 100 MG CAP PO SCH (09:25)
[2017-12-31] MEDS: SOTALOL HCL 80 MG TAB PO SCH (09:25)
[2017-12-31] MEDS: ALLOPURINOL 100 MG TAB PO SCH (09:25)
[2017-12-31] MEDS: MULTIVITAMINS/MINERALS THERAPEUTIC TAB PO SCH (09:25)
[2017-12-31] MEDS: ASPIRIN 81 MG CHEW TAB PO SCH (09:26)
[2017-12-31] MEDS: CLOPIDOGREL 75 MG TAB PO SCH (09:26)
[2017-12-31] MEDS: FUROSEMIDE 40 MG/4 ML VIAL IV PUSH SCH (09:26)
[2017-12-31] MEDS: MAGNESIUM HYDROXIDE SUSP 30 ML CUP PO SCH (09:27)
[2017-12-31] MEDS: SODIUM CHLORIDE 0.9% FLUSH 10 ML FLUSH IV FLUSH SCH (09:27)
[2017-12-31] MEDS ORDERED: DOXYCYCLINE HYCLATE 100 MG CAP PO SCH (21:00)
== END 2017-12-31 12:05 | DRG 234 ==
LOC: HDOC 08:22 → HDIC 08:22 → HCPC 14:30 → HDOC 14:31 → HCPC 12-20 11:33 → HCIS 12-24 07:20 → HCVI 12-24 09:35 → HCPC 12-27 10:07
PROVIDERS: ADMIT Thoracic Surgery (Cardiothoracic Vascular Surgery); ATTEND Thoracic Surgery (Cardiothoracic Vascular Surgery)
PROC: B2111ZZ Fluoroscopy of Multiple Coronary Arteries using Low Osmolar Contrast (ICD-10-PCS; 2017-12-19)
PROC: B2151ZZ Fluoroscopy of Left Heart using Low Osmolar Contrast (ICD-10-PCS; 2017-12-19)
PROC: 4A023N7 Measurement of Cardiac Sampling and Pressure, Left Heart, Percutaneous Approach (ICD-10-PCS; principal; 2017-12-19 11:00)
PROC: 021109W Bypass Coronary Artery, Two Arteries from Aorta with Autologous Venous Tissue, Open Approach (ICD-10-PCS; 2017-12-26)
PROC: 06BP4ZZ Excision of Right Saphenous Vein, Percutaneous Endoscopic Approach (ICD-10-PCS; 2017-12-26)
PROC: 02NN0ZZ Release Pericardium, Open Approach (ICD-10-PCS; 2017-12-26)
PROC: 02100Z9 Bypass Coronary Artery, One Artery from Left Internal Mammary, Open Approach (ICD-10-PCS; 2017-12-26 07:42)
DX: I25.110 Atherosclerotic heart disease of native coronary artery with unstable angina pectoris (principal); I47.2 Ventricular tachycardia; I31.0 Chronic adhesive pericarditis; I48.92 Unspecified atrial flutter; D62 Acute posthemorrhagic anemia; E78.5 Hyperlipidemia, unspecified; I10 Essential (primary) hypertension; N40.0 Benign prostatic hyperplasia without lower urinary tract symptoms; K57.90 Diverticulosis of intestine, part unspecified, without perforation or abscess without bleeding; R91.8 Other nonspecific abnormal finding of lung field; R59.1 Generalized enlarged lymph nodes; Z95.810 Presence of automatic (implantable) cardiac defibrillator
CPT/HCPCS: 71045; 71046; 71250; 76937; 80048; 80053; 81001; 82948; 83036; 83735; 85025; 85027; 85610; 85730; 86850; 86900; 86901; 86920; 87641; 93005; 93458; 93880; 93970; 93998; 94002; 94010; 94150; 94640; 94664; 94667; 94668; 99152; 99153; 99211; C1768; C1769; C1893; G0463; J0131; J0171; J0330; J0690; J1644; J1815; J1817; J1940; J2250; J2370; J2405; J2440; J2710; J2720; J3010; J3370; J3475; J7030; J7060; P9045; Q9967